=== PATIENT | male | born 1945 | race Caucasian/White ===

== ENCOUNTER 2017-01-25 21:12 | Emergency (ER) | payer OTHER, MEDICARE ==
[2017-01-25 21:25] VITALS: BP 141/77; BMI 34.8
[2017-01-25 22:21] LABS: APPEARANCE,URINE CLOUDY (CLEAR); BACTERIA,URINE 1+ /HPF (Negative); COLOR,URINE BLOODY (YELLOW); RBC,URINE TNTC /HPF (NEGATIVE); SQUAMOUS EPITHELIAL CELL,UR RARE /HPF (NEGATIVE)
[2017-01-25 22:49] LABS: BASOPHILS % (AUTO) 0.8 % (0.2-1.0); EOSINOPHILS # (AUTO) 0.2 x10^3/uL (0.0-0.2); EOSINOPHILS % (AUTO) 2.4 % (0.9-2.9); HEMATOCRIT 41.8 % (42.0-54.0); HEMOGLOBIN 14.3 g/dL (13.5-18.0); LYMPHOCYTES # (AUTO) 1.5 X10^3/uL (1.3-2.9); LYMPHOCYTES % (AUTO) 23.3 % (21.0-51.0); MEAN CORPUSCULAR HGB CONC 34.2 g/dL (33.0-35.0); MEAN CORPUSCULAR VOLUME 87.7 fL (80.0-100.0); MEAN PLATELET VOLUME 9.8 fL (7.4-11.0); MONOCYTES # (AUTO) 0.8 x10^3/uL (0.3-0.8); MONOCYTES % (AUTO) 12.2 % (0.0-13.0); NEUTROPHILS # (AUTO) 3.9 x10^3/uL (2.2-4.8); NEUTROPHILS % (AUTO) 61.3 % (42.0-75.0); PLATELET COUNT 147 X10^3/uL (150.0-450.0); RED BLOOD COUNT 4.76 X10^6/uL (4.7-6.0); RED CELL DISTRIBUTION WIDTH 13.7 % (11.6-16.5); WHITE BLOOD COUNT 6.4 X10^3/uL (3.6-10.0)
[2017-01-25 23:02] LABS: ALANINE AMINOTRANSFERASE 28 Units/L (12-78); ALBUMIN 3.3 g/dL (3.4-5.0); ALKALINE PHOSPHATASE 87 Units/L (46-116); ASPARTATE AMINO TRANSFERASE 20 Units/L (15-37); BLOOD UREA NITROGEN 14 mg/dL (7-18); CARBON DIOXIDE 28.7 mmol/L (21-32); CHLORIDE 108 mmol/L (98-107); COR CA(FOR HYPOALB) 8.6 mg/dL (8.5-10.1); COR NA(FOR HYPERGLY) 144 mmol/L (136-145); CREATININE 1.17 mg/dL (0.70-1.30); GLUCOSE 155 mg/dL (65-99); SODIUM 143 mmol/L (136-145); TOTAL PROTEIN 6.1 g/dL (6.4-8.2); eGFR BLACK RACES > 60 (>60); eGFR NON BLACK RACES > 60 (>60)
--- NOTE | 2017-01-26 00:41 | US ---
Ultrasound kidneys Indication: Hematuria. Blood collapse. Technique: Dynamic grayscale and Doppler imaging through the kidneys and bladder. Findings: The right kidney measures 11.4 cm in length the left kidney measures 11.0 cm in length. Th ere is no hydronephrosis or stone seen. The urinary bladder shows hypodense lesion at the base measu ring 3.4 x 2.7 x 2.8 cm. This is probably an enlarged prostate indenting the bladder base. Bladder m ass must be excluded, however. Impression: Mass at the bladder base, possibly enlarged prostate. Other urothelial neoplasm needs to be excluded. Followup with urology. Reported By:
--- NOTE | 2017-01-26 01:00 | DR.GENAD ---
HPI - PCP Primary Care Physician: MALIKA - HPI Comment HPI Comment: He started having casimiro hematuria earlier today which has persisted with at least three trips to the bathroom and seems to be worsening; no pain or discharge; he had partial turp years ago and sees Dr Grissom yearly with no recent problems. He takes coumadin but gets no routine inr, and he misses last month's routine doctor's visit. - Complaint/Symptoms Chief Complaint:: BLOOD IN URINE AND CLOTS - Source History Provided: Patient - Mode of Arrival Mode of Arrival: Ambulatory - Timing Onset of Chief Complaint: 01/25/17 PMH - PMH Past Medical History: Yes Past Medical History: Coronary Artery Disease, Diabetes, Hypertension Past Surgical History: Yes Surgical History: Angioplasty/Stents, Appendectomy, TURP - Family History History of Family Medical Conditions: Yes Family Medical History: Diabetes Mellitus, Hypertension - Social History Does patient currently use any type of tobacco product: No Have you used tobacco products in the last 12 months: No Type of Tobacco Use: None Does any household member use tobacco: No Alcohol Use: None Do you use any recreational Drugs:: No Lives With: Family Lives Where: Home - infectious screening In the last 2 months have you had wt loss of >10#?: NO Have you had fever, night sweats or hemotysis?: No Have you traveled outside the country in the last 6 months?: No Isolation: Standard ROS - Review of Systems Constitutional: No Symptoms Reported Respiratoy: No Symptoms Reported Cardiovascular: No Symptoms Reported Gastrointestinal/Abdominal: No Symptoms Reported Genitourinary: See HPI Neurological: No Symptoms Reported PE - Vital Signs Vitals: Temperature 98.3 F Pulse Rate 69 Respiratory Rate 18 Blood Pressure 141/77 O2 Sat by Pulse Oximetry 97 - General Limitations: No Limitations General Appearance: Alert, In No Apparent Distress - Head Head Exam: Normal Inspection, Atraumatic - Eyes Eye exam: Normal Appearance - Neck Neck Exam: Normal Inspection - Chest Chest Inspection: Normal Inspection - Respiratory Respiratory Exam: Bilateral Clear to Auscultation - Cardiovascular Cardiovascular Exam: Regular Rate - Abdominal Exam Abdominal Exam: Normal Inspection - Extremities Extremities Exam: Normal Inspection - Back Back Exam: Normal Inspection - Neurologic Neurological Exam: Alert, Oriented X3 ROR - Labs Reviewed Laboratory Results Reviewed?: Yes Result Diagrams: 01/25/17 22:40 01/25/17 22:40 Laboratory: WBC 6.4 X10^3/uL (3.6-10.0) 01/25/17 22:40 RBC 4.76 X10^6/uL (4.7-6.0) 01/25/17 22:40 Hgb 14.3 g/dL (13.5-18.0) 01/25/17 22:40 Hct 41.8 % (42.0-54.0) L 01/25/17 22:40 MCV 87.7 fL (80.0-100.0) 01/25/17 22:40 MCH 30.0 pg (27.0-34.0) 01/25/17 22:40 MCHC 34.2 g/dL (33.0-35.0) 01/25/17 22:40 RDW 13.7 % (11.6-16.5) 01/25/17 22:40 Plt Count 147 X10^3/uL (150.0-450.0) L 01/25/17 22:40 MPV 9.8 fL (7.4-11.0) 01/25/17 22:40 Neut % 61.3 % (42.0-75.0) 01/25/17 22:40 Lymph % 23.3 % (21.0-51.0) 01/25/17 22:40 [place] % 12.2 % (0.0-13.0) 01/25/17 22:40 Eos % 2.4 % (0.9-2.9) 01/25/17 22:40 Baso % 0.8 % (0.2-1.0) 01/25/17 22:40 Neut # 3.9 x10^3/uL (2.2-4.8) 01/25/17 22:40 Lymph # 1.5 X10^3/uL (1.3-2.9) 01/25/17 22:40 [place] # 0.8 x10^3/uL (0.3-0.8) 01/25/17 22:40 Eos # 0.2 x10^3/uL (0.0-0.2) 01/25/17 22:40 Baso # 0.0 X10^3/uL (0.0-0.1) 01/25/17 22:40 Absolute Nucleated RBC 0.0 /100WBC 01/25/17 22:40 INR Target Range - 01/25/17 22:40 INR 1.08 (0.8-1.3) 01/25/17 22:40 Sodium 143 mmol/L (136-145) 01/25/17 22:40 Corrected Sodium 144 mmol/L (136-145) 01/25/17 22:40 Potassium 3.9 mmol/L (3.5-5.1) 01/25/17 22:40 Chloride 108 mmol/L (98-107) H 01/25/17 22:40 Carbon Dioxide 28.7 mmol/L (21-32) 01/25/17 22:40 BUN 14 mg/dL (7-18) 01/25/17 22:40 Creatinine 1.17 mg/dL (0.70-1.30) 01/25/17 22:40 Est GFR (MDRD) Af Amer > 60 (>60) 01/25/17 22:40 Est GFR (MDRD) Non-Af > 60 (>60) 01/25/17 22:40 Glucose 155 mg/dL (65-99) H 01/25/17 22:40 Calcium 8.0 mg/dL (8.5-10.1) L 01/25/17 22:40 Corrected Calcium 8.6 mg/dL (8.5-10.1) 01/25/17 22:40 Total Bilirubin 0.30 mg/dL (0.2-1.0) 01/25/17 22:40 AST 20 Units/L (15-37) 01/25/17 22:40 ALT 28 Units/L (12-78) 01/25/17 22:40 Alkaline Phosphatase 87 Units/L (46-116) 01/25/17 22:40 Total Protein 6.1 g/dL (6.4-8.2) L 01/25/17 22:40 Albumin 3.3 g/dL (3.4-5.0) L 01/25/17 22:40 Globulin 2.8 g/dL (2.5-4.5) 01/25/17 22:40 Albumin/Globulin Ratio 1.2 Ratio (1.1-2.1) 01/25/17 22:40 Specimen Type Clean catch urine 01/25/17 21:45 Urine Color Bloody (YELLOW) 01/25/17 21:45 Urine Appearance Cloudy (CLEAR) 01/25/17 21:45 Urine RBC Tntc /HPF (NEGATIVE) 01/25/17 21:45 Urine WBC 3-5 /HPF (NEGATIVE) 01/25/17 21:45 Ur Squamous Epith Cells Rare /HPF (NEGATIVE) 01/25/17 21:45 Urine Bacteria 1+ /HPF (Negative) 01/25/17 21:45 Micro UA Comment Unable to perform (-) 01/25/17 21:45 - XRAY XRAY Interpreted by: Radiologist (mass at bladder base ? prostate) - Diagnosis Discharge Problem: Hematuria, Mass of urogenital structure - Discharge Plan Disposition: 01 HOME, SELF-CARE Condition: Stable - Follow ups/Referrals Follow ups/Referrals: YOLY GRISSOM [CONSULTING PHYSICIAN] - 3 days - Instructions Instructions: Hematuria, Adult
== END 2017-01-26 01:32 | disposition home or self-care (01) ==
LOC: ER 21:12
DX: R31.9 Hematuria, unspecified (principal); N50.89 Other specified disorders of the male genital organs
CPT/HCPCS: 36415; 76770; 80053; 81015; 85025; 85610; 87086; 99283

== ENCOUNTER 2017-03-31 12:02 | Emergency (ER) | payer OTHER, MEDICARE ==
[2017-03-31 12:06] VITALS: BP 144/69; BMI 34.8
--- NOTE | 2017-03-31 13:46 | DR.GENAD ---
HPI - PCP Primary Care Physician: Naseem - HPI Comment HPI Comment: PATIENT IS HAVING CHILL AND HIS SYMTOMS ARE GETTING WORSE. - Complaint/Symptoms Chief Complaint Doctors Comments: CHEST CONGESTION, COUGH CHILL, CHST PAIN TIMES FEW DAYS. Chief Complaint:: Pt states he is having some chest congestion x 2 days. C/o cough, chills - Nurses notes reviewed Nurses Notes Review: Yes - Source History Provided: Patient - Mode of Arrival Mode of Arrival: Ambulatory - Timing Onset of Chief Complaint: 03/29/17 Came on: Suddenly - Duration Duration: Constant Duration: Days - Severity Severity: Moderate PMH - PMH Past Medical History: Yes Past Medical History: Coronary Artery Disease, Diabetes, Dyslipidemia, Hypertension, [place] Past Surgical History: Yes Surgical History: Angioplasty/Stents, Appendectomy, TURP, Other Past Surgical History Comment: Vasectomy - Family History History of Family Medical Conditions: Yes Family Medical History: Diabetes Mellitus, Hypertension - Social History Does patient currently use any type of tobacco product: No Have you used tobacco products in the last 12 months: No Type of Tobacco Use: None Does any household member use tobacco: No Alcohol Use: None Do you use any recreational Drugs:: No Lives With: Spouse Lives Where: Home - infectious screening In the last 2 months have you had wt loss of >10#?: NO Have you had fever, night sweats or hemotysis?: No Have you traveled outside the country in the last 6 months?: No Isolation: Standard ROS - Review of Systems Constitutional: No Symptoms Reported, Chills, Weakness, Fatigue. negative: Fever Eyes: No Symptoms Reported. negative: Eye Pain, Discharge ENTM: Nose Congestion. negative: Ear Pain, Nose Discharge, Throat Pain Respiratoy: Productive Cough, Short of Breath, Wheezing Cardiovascular: Chest Pain Genitourinary: No Symptoms Reported Neurological: No Symptoms Reported Musculoskeletal: Muscle Pain Integumentary: No Symptoms Reported Hematologic/Lymphatic: No Symptoms Reported Endocrine: No Symptoms Reported All Other Systems: Reviewed and Negative PE - Vital Signs Vitals: Temperature 97.7 F Pulse Rate 69 Respiratory Rate 18 Blood Pressure 144/69 O2 Sat by Pulse Oximetry 97 - General Limitations: No Limitations General Appearance: Alert - Head Head Exam: Normal Inspection - Eyes Eye exam: Normal Appearance - ENT ENT Exam: Normal External Ear Exam External Ear Exam: Normal External Inspection TM/Canal Exam: Bilateral Normal Nose Exam: Normal Nose Exam Mouth Exam: Normal Inspection Throat Exam: Normal Inspection, Tonsillar Erythema - Neck Neck Exam: Trachea Midline. negative: Tenderness, Meningismus, Lymphadenopathy - Chest Chest Inspection: Symmetric Chest Wall Rise - Respiratory Respiratory Exam: Normal Lung Sounds Bilat Respiratory Exam: Bilateral Wheezing, Bilateral Rhonchi, Lower Wheezing, Lower Rhonchi - Cardiovascular Cardiovascular Exam: Regular Rate, Normal Rhythm, Normal Heart Sounds - Abdominal Exam Abdominal Exam: Normal Inspection, Normal Bowel Sounds - Extremities Extremities Exam: Normal Inspection - Back Back Exam: Normal Inspection - Neurologic Neurological Exam: Alert, Oriented X3 - Psychiatric Psychiatric Exam: Normal Affect, Normal Mood - Skin Skin Exam: Normal Color MDM - Differential Diagnosis Differential Diagnosis: PNEUMONIA, BRONCHITIS, COUGH, CHF Course - Treatment Treatment: SEE ORDERS - Education/Counseling Education/Counseling: Patient Educated On: Treatment, Diagnosis ROR - Labs Reviewed Laboratory Results Reviewed?: Yes Result Diagrams: 03/31/17 13:49 03/31/17 13:49 Laboratory: WBC 6.5 X10^3/uL (3.6-10.0) 03/31/17 13:49 RBC 5.08 X10^6/uL (4.7-6.0) 03/31/17 13:49 Hgb 15.4 g/dL (13.5-18.0) 03/31/17 13:49 Hct 44.9 % (42.0-54.0) 03/31/17 13:49 MCV 88.3 fL (80.0-100.0) 03/31/17 13:49 MCH 30.4 pg (27.0-34.0) 03/31/17 13:49 MCHC 34.4 g/dL (33.0-35.0) 03/31/17 13:49 RDW 13.5 % (11.6-16.5) 03/31/17 13:49 Plt Count 121 X10^3/uL (150.0-450.0) L 03/31/17 13:49 MPV 10.0 fL (7.4-11.0) 03/31/17 13:49 Neut % 76.9 % (42.0-75.0) H 03/31/17 13:49 Lymph % 6.4 % (21.0-51.0) L 03/31/17 13:49 [place] % 14.8 % (0.0-13.0) H 03/31/17 13:49 Eos % 1.1 % (0.9-2.9) 03/31/17 13:49 Baso % 0.8 % (0.2-1.0) 03/31/17 13:49 Neut # 5.0 x10^3/uL (2.2-4.8) H 03/31/17 13:49 Lymph # 0.4 X10^3/uL (1.3-2.9) L 03/31/17 13:49 [place] # 1.0 x10^3/uL (0.3-0.8) H 03/31/17 13:49 Eos # 0.1 x10^3/uL (0.0-0.2) 03/31/17 13:49 Baso # 0.1 X10^3/uL (0.0-0.1) 03/31/17 13:49 Absolute Nucleated RBC 0.0 /100WBC 03/31/17 13:49 Sodium 141 mmol/L (136-145) 03/31/17 13:49 Corrected Sodium TNP 03/31/17 13:49 Potassium 4.0 mmol/L (3.5-5.1) 03/31/17 13:49 Chloride 105 mmol/L (98-107) 03/31/17 13:49 Carbon Dioxide 30.4 mmol/L (21-32) 03/31/17 13:49 BUN 18 mg/dL (7-18) 03/31/17 13:49 Creatinine 1.20 mg/dL (0.70-1.30) 03/31/17 13:49 Est GFR (MDRD) Af Amer > 60 (>60) 03/31/17 13:49 Est GFR (MDRD) Non-Af > 60 (>60) 03/31/17 13:49 Glucose 91 mg/dL (65-99) 03/31/17 13:49 Calcium 8.7 mg/dL (8.5-10.1) 03/31/17 13:49 Corrected Calcium TNP 03/31/17 13:49 Total Bilirubin 0.50 mg/dL (0.2-1.0) 03/31/17 13:49 AST 16 Units/L (15-37) 03/31/17 13:49 ALT 28 Units/L (12-78) 03/31/17 13:49 Alkaline Phosphatase 75 Units/L (46-116) 03/31/17 13:49 Total Protein 7.0 g/dL (6.4-8.2) 03/31/17 13:49 Albumin 3.7 g/dL (3.4-5.0) 03/31/17 13:49 Globulin 3.3 g/dL (2.5-4.5) 03/31/17 13:49 Albumin/Globulin Ratio 1.1 Ratio (1.1-2.1) 03/31/17 13:49 Specimen Type Clean catch urine 03/31/17 13:51 Urine Color Yellow (YELLOW) 03/31/17 13:51 Urine Appearance Clear (CLEAR) 03/31/17 13:51 Urine pH 5.0 (5.0 - 8.0) 03/31/17 13:51 Ur Specific [place] 1.015 (1.000-1.030) 03/31/17 13:51 Urine Protein Negative (NEGATIVE) 03/31/17 13:51 Urine Glucose (UA) Negative (NEGATIVE) 03/31/17 13:51 Urine Ketones Negative (NEGATIVE) 03/31/17 13:51 Urine Occult Blood Negative (NEGATIVE) 03/31/17 13:51 Urine Nitrite Negative (NEGATIVE) 03/31/17 13:51 Urine Bilirubin Negative (NEGATIVE) 03/31/17 13:51 Urine Urobilinogen Normal (NORMAL) 03/31/17 13:51 Ur Leukocyte Esterase 1+ (NEGATIVE) 03/31/17 13:51 Urine RBC 1-3 /HPF (NEGATIVE) 03/31/17 13:51 Urine WBC 2-5 /HPF (NEGATIVE) 03/31/17 13:51 Ur Squamous Epith Cells Few /HPF (NEGATIVE) 03/31/17 13:51 Amorphous Sediment Trace /HPF (NEGATIVE) 03/31/17 13:51 Urine Bacteria Trace /HPF (NEGATIVE) 03/31/17 13:51 Urine Mucus Few /HPF (NEGATIVE) 03/31/17 13:51 Ur Culture Indicated? No/not indicated 03/31/17 13:51 - XRAY XRAY Interpreted by: Radiologist XRAY Findings: REPORT DISCUSS WITH PATIENT. - Diagnosis Discharge Problem: Cough - Discharge Plan Disposition: 01 HOME, SELF-CARE Condition: Stable - Follow ups/Referrals Follow ups/Referrals: Chandan Gusman [Primary Care Provider] - 3 days - Instructions Instructions: Cough, Adult, [id number] Additional Instructions: RETURN TO ED IF WORSE.
--- NOTE | 2017-03-31 13:52 | RAD ---
HISTORY: Chest pain. Study: Portable chest. Comparison: None available. Findings: The trachea is midline. The cardiac silhouette is unremarkable. The lungs are clear without focal infiltrate or effusion. The bony thorax is unremarkable. IMPRESSION: 1. No acute cardiopulmonary disease. Reported By:
[2017-03-31 13:59] LABS: BILIRUBIN,URINE NEGATIVE (NEGATIVE); BLOOD/HEMOGLOBIN,URINE NEGATIVE (NEGATIVE); GLUCOSE, URINE NEGATIVE (NEGATIVE); KETONES,URINE NEGATIVE (NEGATIVE); LEUKOCYTE ESTERASE ,URINE 1+ (NEGATIVE); NITRITES,URINE NEGATIVE (NEGATIVE); PROTEIN,URINE NEGATIVE (NEGATIVE); UROBILINOGEN,URINE NORMAL (NORMAL)
[2017-03-31 14:00] LABS: BASOPHILS # (AUTO) 0.1 X10^3/uL (0.0-0.1); BASOPHILS % (AUTO) 0.8 % (0.2-1.0); EOSINOPHILS # (AUTO) 0.1 x10^3/uL (0.0-0.2); EOSINOPHILS % (AUTO) 1.1 % (0.9-2.9); HEMATOCRIT 44.9 % (42.0-54.0); HEMOGLOBIN 15.4 g/dL (13.5-18.0); LYMPHOCYTES # (AUTO) 0.4 X10^3/uL (1.3-2.9); LYMPHOCYTES % (AUTO) 6.4 % (21.0-51.0); MEAN CORPUSCULAR HEMOGLOBIN 30.4 pg (27.0-34.0); MEAN CORPUSCULAR HGB CONC 34.4 g/dL (33.0-35.0); MEAN CORPUSCULAR VOLUME 88.3 fL (80.0-100.0); MONOCYTES % (AUTO) 14.8 % (0.0-13.0); NEUTROPHILS % (AUTO) 76.9 % (42.0-75.0); PLATELET COUNT 121 X10^3/uL (150.0-450.0); RED BLOOD COUNT 5.08 X10^6/uL (4.7-6.0); RED CELL DISTRIBUTION WIDTH 13.5 % (11.6-16.5); WHITE BLOOD COUNT 6.5 X10^3/uL (3.6-10.0)
[2017-03-31 14:06] LABS: APPEARANCE,URINE CLEAR (CLEAR); COLOR,URINE YELLOW (YELLOW)
[2017-03-31 14:07] LABS: AMORPHOUS SEDIMENT,UR TRACE /HPF (NEGATIVE); BACTERIA,URINE TRACE /HPF (NEGATIVE); MUCUS,URINE FEW /HPF (NEGATIVE); SQUAMOUS EPITHELIAL CELL,UR FEW /HPF (NEGATIVE)
[2017-03-31 14:20] LABS: ALANINE AMINOTRANSFERASE 28 Units/L (12-78); ALBUMIN 3.7 g/dL (3.4-5.0); ALKALINE PHOSPHATASE 75 Units/L (46-116); ASPARTATE AMINO TRANSFERASE 16 Units/L (15-37); BLOOD UREA NITROGEN 18 mg/dL (7-18); CALCIUM 8.7 mg/dL (8.5-10.1); CARBON DIOXIDE 30.4 mmol/L (21-32); CHLORIDE 105 mmol/L (98-107); GLUCOSE 91 mg/dL (65-99); SODIUM 141 mmol/L (136-145); eGFR BLACK RACES > 60 (>60); eGFR NON BLACK RACES > 60 (>60)
== END 2017-03-31 15:00 | disposition home or self-care (01) ==
LOC: ER 12:10
DX: R05 Cough (principal)
CPT/HCPCS: 36415; 71010; 80053; 81001; 85025; 99282

== ENCOUNTER → 2017-10-08 | Outpatient (CLI) | payer OTHER, MEDICARE ==
[2017-10-08 16:08] LABS: BASOPHILS # (AUTO) 0.1 X10^3/uL (0.0-0.1); BASOPHILS % (AUTO) 0.8 % (0.2-1.0); EOSINOPHILS # (AUTO) 0.2 x10^3/uL (0.0-0.2); EOSINOPHILS % (AUTO) 2.5 % (0.9-2.9); HEMATOCRIT 39.8 % (42.0-54.0); HEMOGLOBIN 13.7 g/dL (13.5-18.0); LYMPHOCYTES # (AUTO) 1.5 X10^3/uL (1.3-2.9); LYMPHOCYTES % (AUTO) 19.6 % (21.0-51.0); MEAN CORPUSCULAR HEMOGLOBIN 30.1 pg (27.0-34.0); MEAN CORPUSCULAR HGB CONC 34.4 g/dL (33.0-35.0); MEAN CORPUSCULAR VOLUME 87.6 fL (80.0-100.0); MEAN PLATELET VOLUME 10.4 fL (7.4-11.0); MONOCYTES # (AUTO) 0.6 x10^3/uL (0.3-0.8); MONOCYTES % (AUTO) 8.6 % (0.0-13.0); NEUTROPHILS # (AUTO) 5.1 x10^3/uL (2.2-4.8); NEUTROPHILS % (AUTO) 68.5 % (42.0-75.0); PLATELET COUNT 153 X10^3/uL (150.0-450.0); RED BLOOD COUNT 4.54 X10^6/uL (4.7-6.0); RED CELL DISTRIBUTION WIDTH 13.7 % (11.6-16.5); WHITE BLOOD COUNT 7.5 X10^3/uL (3.6-10.0)
== END ==
LOC: LAB 15:51
PROVIDERS: ATTEND Internal Medicine
DX: K62.5 Hemorrhage of anus and rectum (principal)
CPT/HCPCS: 36415; 85025

== ENCOUNTER 2019-02-22 16:25 | Observation (INO) ==
[2019-02-22] MEDS ORDERED: HumuLIN R SUBCUT PRN (16:35)
--- NOTE | 2019-02-22 16:42 | DR.H&P ---
H&P - History & Physical for Day of: H&P Date: 02/22/19 - Chief Complaint Chief Complaint: DIZZINESS, DIARRHEA SINCE THURSDAY, WEAKNESS BP RUNNING LOW - History of Present Illness History of Present Illness: 73 WM WITH CO DIZZINESS, LOW BP WITH DIARRHEA SINCE THURSDAY. PT DENIES VOMITING, CO CHILLS AND SWEATS. PT CO WAS SEEN IN ER ON 02/19 WITH WEAKNESS, CP AND DIZZINESS. PT HAD NORMAL CE AND EKG DONE. PT HAS HX CAD AND PENDING CATH NEXT WEEK, PREVIOUSLY SCHEDULED FOR TODAY AND CANCELED DUE TO ILLNESS. PT BP 100/50 IN OFFICE. PT ADMITTED FOR TREATMENT OF COLITIS AND DEHYDRATION. - Past Medical History Past Medical History: [place], Coronary Artery Disease, Hypertension, Dyslipidemia, Diabetes - Past Surgical History Surgical History: Angioplasty/Stents, Appendectomy, Other, TURP - Family History Family Medical History: Diabetes Mellitus, Hypertension - Social History Does patient currently use any type of tobacco product: No Have you used tobacco products in the last 12 months: No Type of Tobacco Use: None Does any household member use tobacco: No Alcohol Use: None Drug Use: None - Medications Home Medications: No Known Drug Allergies Allergy (Verified 02/19/19 15:32) - Review of Systems Constitutional: Chills, Weakness Eyes: No Symptoms Reported ENT: No Symptoms Reported Respiratory: SOB with Excertion Cardiovascular: Light Headedness Gastrointestinal: Nausea, Diarrhea Genitourinary: No Symptoms Reported Skin: No Symptoms Reported Neurological: Weakness, Other (DIZZINESS) - Physical Exam Vital Signs: Blood Pressure [Left Arm] 169/79 Blood Pressure 169/79 Oriented: Person Eyes: Normal Ear: Normal Nose: Normal Throat: Normal Respiratory: RLL Diminished, LLL Diminished Cardiovascular: Irregular Auscultation: Bowel Sounds: Increased Palpation: Normal Skin: Decreased Turgur Musculoskeletal: Normal Psychiatric: Anxiety Affect: Anxious Speech Pattern: Clear, Appropriate - Assessment/Plan (1) Colitis Status: Acute Plan: ADMIT, STOOL STUDIES. IV HYDRATION. ADMISSION LABS CBC CMP MAG. CE AND EKG ON ADMISSION. SSI, CLEAR LIQUID DIET, PROTONIX (2) Hypotension Status: Acute (3) Dehydration Status: Acute (4) Coronary artery disease Status: Acute (5) Dizziness Status: Acute - Allergies Allergies/Adverse Reactions: Allergies Allergy/AdvReac Type Severity Reaction Status Date / Time No Known Drug Allergies Allergy Verified 02/19/19 15:32
[2019-02-22] MEDS ORDERED: NS 1000 ML 1,000 ML ONE (16:45)
[2019-02-22 17:07] VITALS: BMI 32.1
[2019-02-22] MEDS: NS 1000 ML 1,000 ML IV SCH (17:13)
[2019-02-22 17:27] LABS: CKMB % 1.9 % (<4); CREATINE KINASE MB 1.4 ng/mL (0-4.0); MAGNESIUM 1.8 mg/dL (1.7-2.9); TROPONIN I 0.03 ng/mL (0-1.5)
[2019-02-22 18:55] LABS: BASOPHILS % (AUTO) 0.5 % (0.2-1.0); EOSINOPHILS # (AUTO) 0.1 x10^3/uL (0.0-0.2); EOSINOPHILS % (AUTO) 0.9 % (0.9-2.9); HEMATOCRIT 45.9 % (42.0-54.0); HEMOGLOBIN 15.6 g/dL (13.5-18.0); LYMPHOCYTES # (AUTO) 0.9 X10^3/uL (1.3-2.9); LYMPHOCYTES % (AUTO) 15.8 % (21.0-51.0); MEAN CORPUSCULAR HEMOGLOBIN 29.9 pg (27.0-34.0); MEAN CORPUSCULAR HGB CONC 33.9 g/dL (33.0-35.0); MEAN CORPUSCULAR VOLUME 88.2 fL (80.0-100.0); MEAN PLATELET VOLUME 10.3 fL (7.4-11.0); MONOCYTES % (AUTO) 18.9 % (0.0-13.0); NEUTROPHILS # (AUTO) 3.5 x10^3/uL (2.2-4.8); NEUTROPHILS % (AUTO) 63.9 % (42.0-75.0); PLATELET COUNT 137 X10^3/uL (150.0-450.0); RED BLOOD COUNT 5.21 X10^6/uL (4.7-6.0); RED CELL DISTRIBUTION WIDTH 13.8 % (11.6-16.5); WHITE BLOOD COUNT 5.5 X10^3/uL (3.6-10.0)
[2019-02-22 19:11] LABS: ALBUMIN 3.3 g/dL (3.4-5.0); CALCIUM 8.5 mg/dL (8.5-10.1); CARBON DIOXIDE 26.4 mmol/L (21-32); COR CA(FOR HYPOALB) 9.1 mg/dL (8.5-10.1); CREATININE 1.59 mg/dL (0.70-1.30); TOTAL PROTEIN 6.5 g/dL (6.4-8.2)
[2019-02-22] MEDS: PROTONIX INJ 40 MG VIAL IVP SCH (19:44)
[2019-02-22] MEDS: CIPRO IV 400 MG PREMIX* 400 MG/200 ML IV.SOLN. IV SCH (19:44)
[2019-02-22 20:00] LABS: BILIRUBIN,URINE NEGATIVE (NEGATIVE); BLOOD/HEMOGLOBIN,URINE NEGATIVE (NEGATIVE); GLUCOSE, URINE NEGATIVE (NEGATIVE); KETONES,URINE NEGATIVE (NEGATIVE); LEUKOCYTE ESTERASE ,URINE NEGATIVE (NEGATIVE); NITRITES,URINE NEGATIVE (NEGATIVE); PROTEIN,URINE 1+ (NEGATIVE); UROBILINOGEN,URINE NORMAL (NORMAL)
[2019-02-22] MEDS ORDERED: SNACK - Diabetic Appropriate PO SCH (20:00)
[2019-02-22 20:01] LABS: APPEARANCE,URINE CLEAR (CLEAR); COLOR,URINE YELLOW (YELLOW)
[2019-02-22 20:06] LABS: BACTERIA,URINE TRACE /HPF (NEGATIVE); RBC,URINE 0-2 /HPF (NONE SEEN); SQUAMOUS EPITHELIAL CELL,UR NEGATIVE /HPF (NEGATIVE)
[2019-02-22 20:07] LABS: HYALINE CASTS, URINE MODERATE /LPF (NEGATIVE); MUCUS,URINE FEW /HPF (NEGATIVE)
--- NOTE | 2019-02-22 22:23 | CT ---
History: Colitis and pain Exam: CT abdomen and pelvis without contrast Comparison: None Technique: Axial spiral images were obtained from lung bases through the pubic symphysis without contrast. Automated dose control was utilized. Findings: The lung bases are clear. The liver and spleen are normal size and density. The gallbladder, pancreas , and adrenals are normal. There is perirenal scarring around both kidneys with no hydronephrosis or renal stones. The ureters are normal caliber . The prostate gland is moderately enlarged . The bladder is unremarkable. No adenopathy or ascites is seen. The appendix is not well visualized with no pericecal inflammation . The mesentery is unremarkable . There is no adenopathy or ascites . 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 There are degenerative changes seen in the spine with no aggressive osseous lesion. IMPRESSION: No acute intra-abdominal abnormality seen. Moderate perirenal scarring around both kidneys with no hydronephrosis or urinary obstruction. Mild diverticulosis of the sigmoid colon with no pelvic masses or inflammation seen . 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 Moderate prostatic enlargement . Small hiatal hernia. Reported By:
[2019-02-23 05:21] LABS: BASOPHILS % (AUTO) 0.5 % (0.2-1.0); EOSINOPHILS # (AUTO) 0.1 x10^3/uL (0.0-0.2); EOSINOPHILS % (AUTO) 1.4 % (0.9-2.9); HEMATOCRIT 41.7 % (42.0-54.0); HEMOGLOBIN 14.1 g/dL (13.5-18.0); LYMPHOCYTES # (AUTO) 1.1 X10^3/uL (1.3-2.9); LYMPHOCYTES % (AUTO) 21.5 % (21.0-51.0); MEAN CORPUSCULAR HEMOGLOBIN 30.2 pg (27.0-34.0); MEAN CORPUSCULAR HGB CONC 33.8 g/dL (33.0-35.0); MEAN CORPUSCULAR VOLUME 89.4 fL (80.0-100.0); MEAN PLATELET VOLUME 10.5 fL (7.4-11.0); MONOCYTES # (AUTO) 0.9 x10^3/uL (0.3-0.8); MONOCYTES % (AUTO) 17.8 % (0.0-13.0); NEUTROPHILS # (AUTO) 3.1 x10^3/uL (2.2-4.8); NEUTROPHILS % (AUTO) 58.8 % (42.0-75.0); PLATELET COUNT 128 X10^3/uL (150.0-450.0); RED BLOOD COUNT 4.67 X10^6/uL (4.7-6.0); RED CELL DISTRIBUTION WIDTH 13.5 % (11.6-16.5); WHITE BLOOD COUNT 5.2 X10^3/uL (3.6-10.0)
[2019-02-23 05:37] LABS: ALANINE AMINOTRANSFERASE 29 Units/L (12-78); ALBUMIN 2.8 g/dL (3.4-5.0); ALKALINE PHOSPHATASE 70 Units/L (46-116); ASPARTATE AMINO TRANSFERASE 24 Units/L (15-37); BLOOD UREA NITROGEN 18 mg/dL (7-18); CALCIUM 8.1 mg/dL (8.5-10.1); CARBON DIOXIDE 30.5 mmol/L (21-32); CHLORIDE 103 mmol/L (98-107); COR CA(FOR HYPOALB) 9.1 mg/dL (8.5-10.1); CREATININE 1.35 mg/dL (0.70-1.30); SODIUM 141 mmol/L (136-145); TOTAL PROTEIN 5.6 g/dL (6.4-8.2); eGFR NON BLACK RACES 55 (>60)
[2019-02-23] MEDS ORDERED: K-DUR TAB 20 MEQ PO PRN (06:15)
[2019-02-23] MEDS ORDERED: POTASSIUM CHL 40 MEQ/NS 0.45% 500 ML IV PRN (06:15)
[2019-02-23] MEDS ORDERED: MAGNESIUM SULFATE 1 GRAM/100 mL PREMIX 1 GM/100 ML BAG IV PRN (06:15)
[2019-02-23] MEDS ORDERED: POTASSIUM CHL 60 MEQ/NS 0.45% 500 ML IV PRN (06:15)
[2019-02-23] MEDS ORDERED: K-RIDER 10 MEQ/NS 100 ML 10 MEQ/100 ML BAG IV PRN (06:15)
[2019-02-23] MEDS ORDERED: MICRO K EXTEN CAP 10 MEQ PO PRN (06:15)
[2019-02-23] MEDS ORDERED: KLOR-CON PO PRN (06:15)
[2019-02-23] MEDS ORDERED: POTASSIUM CHLORIDE LIQ 20 MEQ UDC PO PRN (06:15)
[2019-02-23] MEDS ORDERED: PHARMACY CONSULT - DOSE _____ XX SCH (08:00)
[2019-02-23] MEDS: CIPRO IV 400 MG PREMIX* 400 MG/200 ML IV.SOLN. IV SCH (08:09)
[2019-02-23] MEDS: PROTONIX INJ 40 MG VIAL IVP SCH (08:09)
[2019-02-23] MEDS: NS 1000 ML 1,000 ML IV SCH (08:26)
[2019-02-23 11:41] VITALS: BP 119/62
== END 2019-02-23 12:05 | disposition home or self-care (01) ==
LOC: ICU
PROVIDERS: ADMIT Internal Medicine; ATTEND Internal Medicine
DX: R06.02 Shortness of breath; R53.1 Weakness; I25.10 Atherosclerotic heart disease of native coronary artery without angina pectoris; R94.4 Abnormal results of kidney function studies; Z79.899 Other long term (current) drug therapy; I95.89 Other hypotension; E86.0 Dehydration; K44.9 Diaphragmatic hernia without obstruction or gangrene; R42 Dizziness and giddiness; K52.89 Other specified noninfective gastroenteritis and colitis
CPT/HCPCS: 36415; 74176; 80053; 81001; 82270; 82550; 82553; 83735; 84132; 84484; 85025; 87045; 87205; 87427; 87449; 87899; 93005; 96367; 96374; A4222; C9113; G0378; J0744; J7030

== ENCOUNTER 2019-06-26 15:15 | Inpatient (IN) ==
[2019-06-26 15:23] VITALS: BMI 34.2
--- NOTE | 2019-06-26 15:41 | DR.GENAD ---
HPI Time Seen Time Seen by Provider: 06/26/19 15:41 PCP Primary Care Physician: ROBERTO CARLOS YAO Complaint/Symptoms Chief Complaint Doctors Comments: 74 yo male who presents for generalized illness. He was advised to come to ED when he felt lightheaded. He has had cough for the past 4-5 days that has been worsening. He states that she has also had decreased appetite and fevers since. He is life long none smoker. He states that he feels horrible and has aches and pains.He denies SOB/CHEST pain/ dysuria/ change in bowel habits. Chief Complaint:: CCC FOR 5 DAYS, WENT TO [facility] AND GOT A SHOT OF ROCEPHIN AND WENT TO GET MEDS AT [facility] AND THINKS HE HAD A REACTION TO MEDS. FEVER OF 101.8 Source History Provided: Patient and Significant Other Mode of Arrival Mode of Arrival: Ambulatory Timing Onset of Chief Complaint: 06/21/19 PMH PMH Past Medical History: Yes Past Medical History: Arthritis and Hypertension Past Surgical History: Yes Surgical History: Ortho Surgery Past Surgical History Comment: VASCETOMY, STENTS Family History History of Family Medical Conditions: Yes Family Medical History: Diabetes Mellitus, [place], Coronary Artery Disease, Heart Failure and Hypertension Social History Does any household member use tobacco: No Alcohol Use: None Do you use any recreational Drugs:: No Lives With: Spouse Lives Where: Home infectious screening In the last 2 months have you had wt loss of >10#?: NO Have you had fever, night sweats or hemotysis?: No Have you traveled outside the country in the last 6 months?: No Isolation: Standard ROS Review of Systems Constitutional: Chills, Fever, Malaise and Fatigue Eyes: No Symptoms Reported ENTM: No Symptoms Reported Respiratoy: Productive Cough Cardiovascular: No Symptoms Reported Gastrointestinal/Abdominal: No Symptoms Reported Genitourinary: No Symptoms Reported Neurological: No Symptoms Reported Musculoskeletal: No Symptoms Reported Integumentary: No Symptoms Reported Hematologic/Lymphatic: No Symptoms Reported Endocrine: No Symptoms Reported All Other Systems: Reviewed and Negative PE Vital Signs Vitals: Temperature 98.2 F Pulse Rate [Left Brachial] 67 Pulse Rate 117 Respiratory Rate 20 Blood Pressure [Left Arm] 141/63 Blood Pressure 134/54 O2 Sat by Pulse Oximetry 95 General Limitations: No Limitations General Appearance: Alert and In Distress (acutely ill) Head Head Exam: Normal Inspection, Atraumatic and Normocephalic Eyes Eye exam: Normal Appearance and EOMI ENT ENT Exam: Normal Exam External Ear Exam: Normal External Inspection Nose Exam: Normal Nose Exam Chest Chest Inspection: Normal Inspection Respiratory Respiratory Exam: Bilateral: Wheezing and Bilateral: Rales (bases ) Cardiovascular Cardiovascular Exam: Tachycardia Abdominal Exam Abdominal Exam: Normal Inspection, Normal Bowel Sounds and Soft Extremities Extremities Exam: Normal Inspection and Full ROM Neurologic Neurological Exam: Alert, Oriented X3 and CN II-XII Intact Psychiatric Psychiatric Exam: Normal Affect and Normal Mood Skin Skin Exam: Other (warm to touch) MDM Additional Information Additional Information Obtained From: Old Records and Family Differential Diagnosis Differential Diagnosis: sepsis COURSE Reevaluation 1st: Unchanged (16:45) 2nd: Unchanged (17:30) 3rd: Unchanged (18:00) Consultation Called: 18:05 Call Returned: 18:05 Consultation Comments: Dr. Campos accepts admission Education/Counseling Education/Counseling: Patient, Family, Education and Counseling Educated On: Treatment, Diagnosis, Prognosis and Needs for Follow Up ROR Labs Reviewed Laboratory Results Reviewed?: Yes Result Diagrams: 06/26/19 16:04 06/26/19 16:04 Laboratory: WBC 7.6 X10^3/uL (3.6-10.0) 06/26/19 16:04 RBC 4.87 X10^6/uL (4.7-6.0) 06/26/19 16:04 Hgb 14.8 g/dL (13.5-18.0) 06/26/19 16:04 Hct 42.6 % (42.0-54.0) 06/26/19 16:04 MCV 87.5 fL (80.0-100.0) 06/26/19 16:04 MCH 30.4 pg (27.0-34.0) 06/26/19 16:04 MCHC 34.7 g/dL (33.0-35.0) 06/26/19 16:04 RDW 14.2 % (11.6-16.5) 06/26/19 16:04 Plt Count 109 X10^3/uL (150.0-450.0) L 06/26/19 16:04 MPV 9.2 fL (7.4-11.0) 06/26/19 16:04 Neut % (Auto) 86.4 % (42.0-75.0) H 06/26/19 16:04 Lymph % (Auto) 4.4 % (21.0-51.0) L 06/26/19 16:04 [place] % (Auto) 8.4 % (0.0-13.0) 06/26/19 16:04 Eos % (Auto) 0.4 % (0.9-2.9) L 06/26/19 16:04 Baso % (Auto) 0.4 % (0.2-1.0) 06/26/19 16:04 Neut # (Auto) 6.6 x10^3/uL (2.2-4.8) H 06/26/19 16:04 Lymph # (Auto) 0.3 X10^3/uL (1.3-2.9) L 06/26/19 16:04 [place] # (Auto) 0.6 x10^3/uL (0.3-0.8) 06/26/19 16:04 Eos # (Auto) 0.0 x10^3/uL (0.0-0.2) 06/26/19 16:04 Baso # (Auto) 0.0 X10^3/uL (0.0-0.1) 06/26/19 16:04 Absolute Nucleated RBC 0.1 /100WBC 06/26/19 16:04 PT 13.3 SECONDS (11.8-14.3) 06/26/19 16:04 INR Target Range - 06/26/19 16:04 INR 1.05 (0.8-1.3) 06/26/19 16:04 APTT 27.2 SECONDS (22.9-36.5) 06/26/19 16:04 PTT Comment - 06/26/19 16:04 Sodium 137 mmol/L (136-145) 06/26/19 16:04 Corrected Sodium 139 mmol/L (136-145) 06/26/19 16:04 Potassium 3.6 mmol/L (3.5-5.1) 06/26/19 16:04 Chloride 100 mmol/L (98-107) 06/26/19 16:04 Carbon Dioxide 28.7 mmol/L (21-32) 06/26/19 16:04 BUN 18 mg/dL (7-18) 06/26/19 16:04 Creatinine 1.32 mg/dL (0.70-1.30) H 06/26/19 16:04 Est GFR (MDRD) Af Amer > 60 (>60) 06/26/19 16:04 Est GFR (MDRD) Non-Af 56 (>60) L 06/26/19 16:04 Glucose 177 mg/dL (65-99) H 06/26/19 16:04 POC Glucose (mg/dL) 143 mg/dL (65-99) H 06/26/19 15:30 Lactic Acid 1.6 mmol/L (0.4-2.0) 06/26/19 16:04 Calcium 8.6 mg/dL (8.5-10.1) 06/26/19 16:04 Corrected Calcium 9.2 mg/dL (8.5-10.1) 06/26/19 16:04 Phosphorus 3.6 mg/dL (2.6-4.7) 06/26/19 16:04 Magnesium 1.3 mg/dL (1.7-2.9) L 06/26/19 16:04 Total Bilirubin 0.60 mg/dL (0.2-1.0) 06/26/19 16:04 AST 22 Units/L (15-37) 06/26/19 16:04 ALT 23 Units/L (12-78) 06/26/19 16:04 Alkaline Phosphatase 81 Units/L (46-116) 06/26/19 16:04 Creatine Kinase 140 Units/L (39-308) 06/26/19 16:04 CK-MB (CK-2) 1.5 ng/mL (0-4.0) 06/26/19 16:04 CK/CKMB % Calc 1.1 % (<4) 06/26/19 16:04 Troponin I < 0.02 ng/mL (0-1.5) 06/26/19 16:04 Total Protein 6.3 g/dL (6.4-8.2) L 06/26/19 16:04 Albumin 3.2 g/dL (3.4-5.0) L 06/26/19 16:04 Globulin 3.1 g/dL (2.5-4.5) 06/26/19 16:04 Albumin/Globulin Ratio 1.0 Ratio (1.1-2.1) L 06/26/19 16:04 Specimen Type Clean catch urine 06/26/19 16:10 Urine Color Yellow (YELLOW) 06/26/19 16:10 Urine Appearance Clear (CLEAR) 06/26/19 16:10 Urine pH 5.0 (5.0 - 8.0) 06/26/19 16:10 Ur Specific [place] 1.025 (1.000-1.030) 06/26/19 16:10 Urine Protein 1+ (NEGATIVE) 06/26/19 16:10 Urine Glucose (UA) Negative (NEGATIVE) 06/26/19 16:10 Urine Ketones 1+ (NEGATIVE) 06/26/19 16:10 Urine Occult Blood Negative (NEGATIVE) 06/26/19 16:10 Urine Nitrite Negative (NEGATIVE) 06/26/19 16:10 Urine Bilirubin Negative (NEGATIVE) 06/26/19 16:10 Urine Urobilinogen Normal (NORMAL) 06/26/19 16:10 Ur Leukocyte Esterase Negative (NEGATIVE) 06/26/19 16:10 Urine RBC None seen /HPF (0-3) 06/26/19 16:10 Urine WBC 0-2 /HPF (0-5) 06/26/19 16:10 Ur Squamous Epith Cells Few /HPF (NEGATIVE) 06/26/19 16:10 Urine Bacteria Negative /HPF (NEGATIVE) 06/26/19 16:10 Urine Mucus Few /HPF (NEGATIVE) 06/26/19 16:10 Ur Culture Indicated? No/not indicated 06/26/19 16:10 Other Results Comments: Service Date: 06/26/19 Service Time: 1720 HISTORY: Fever, altered mental status Study: CT brain without contrast Comparison: 10/19/2018 Technique: Multiple axial images of the brain were obtained from the skull base to the vertex without administration of IV contrast. Automated exposure control (AEC) was utilized to adjust the MA and/or kV according to patient size. Findings: There is no acute intracranial hemorrhage. 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 No mass or mass effect. No abnormal extra-axial fluid collection. The ventricles are normal in size, shape and position. Basilar cisterns patent. Good matter -white matter interface is distinct. There is mucoperiosteal thickening noted in the anterior and middle ethmoid air cells, with aerosolized secretions. Mucoperiosteal thickening noted in both maxillary sinuses. There is no acute osseous abnormality. IMPRESSION: 1. Findings consistent with acute sinusitis involving the ethmoid air cells as discussed above. Mucoperiosteal thickening also noted within the maxillary sinuses. 2. Chronic appearing white matter changes are noted as described above. . Reported By: Service Date: 06/26/19 Service Time: 1547 HISTORY: Altered mental status Study: AP chest. Comparison: 02/19/2019 Findings: Mild prominence of the interstitium noted in the lung bases. This appears similar previous examination. No focal airspace opacities are noted. There are no pleural effusions. The beau and cardiomediastinal silhouette appear normal. IMPRESSION: 1. Mild interstitial prominence of the lung bases appears similar to previous examination and may be secondary to chronic interstitial changes, chronic interstitial lung disease. Clinical correlation is required.. Reported By: Opioid Opioid Risk Tool Total: 0 Total Score Risk Category: Low Risk Copyright: Gerry MCNAMARA predicting aberrant behaviors Diagnosis Discharge Problem: Sepsis Narrative Support Text: Admitted to Dr. Campos for further workup
[2019-06-26] MEDS ORDERED: ZOSYN VIAL 4.5 GRAMS 4.5 G in NS 100 ML IV + SPIKE MINIBAG* 100 ML IV SCH (16:00)
[2019-06-26] MEDS ORDERED: PHARMACY CONSULT - VANCOMYCIN XX SCH (16:00)
[2019-06-26] MEDS ORDERED: DUONEB 0.5 MG/3 MG NEB ONE (16:13)
[2019-06-26 16:16] LABS: BASOPHILS % (AUTO) 0.4 % (0.2-1.0); EOSINOPHILS % (AUTO) 0.4 % (0.9-2.9); HEMATOCRIT 42.6 % (42.0-54.0); HEMOGLOBIN 14.8 g/dL (13.5-18.0); LYMPHOCYTES # (AUTO) 0.3 X10^3/uL (1.3-2.9); LYMPHOCYTES % (AUTO) 4.4 % (21.0-51.0); MEAN CORPUSCULAR HEMOGLOBIN 30.4 pg (27.0-34.0); MEAN CORPUSCULAR HGB CONC 34.7 g/dL (33.0-35.0); MEAN CORPUSCULAR VOLUME 87.5 fL (80.0-100.0); MEAN PLATELET VOLUME 9.2 fL (7.4-11.0); MONOCYTES # (AUTO) 0.6 x10^3/uL (0.3-0.8); MONOCYTES % (AUTO) 8.4 % (0.0-13.0); NEUTROPHILS # (AUTO) 6.6 x10^3/uL (2.2-4.8); NEUTROPHILS % (AUTO) 86.4 % (42.0-75.0); PLATELET COUNT 109 X10^3/uL (150.0-450.0); RED BLOOD COUNT 4.87 X10^6/uL (4.7-6.0); RED CELL DISTRIBUTION WIDTH 14.2 % (11.6-16.5); WHITE BLOOD COUNT 7.6 X10^3/uL (3.6-10.0)
[2019-06-26] MEDS ORDERED: ZOSYN VIAL 3.375 GRAMS IV ONE (16:23)
[2019-06-26] MEDS ORDERED: NS 100 ML IV + SPIKE MINIBAG* 100 ML IV ONE (16:23)
[2019-06-26] MEDS ORDERED: DUONEB 0.5 MG/3 MG ONE (16:25)
[2019-06-26 16:33] LABS: BLOOD UREA NITROGEN 18 mg/dL (7-18); CALCIUM 8.6 mg/dL (8.5-10.1); CARBON DIOXIDE 28.7 mmol/L (21-32); CHLORIDE 100 mmol/L (98-107); COR NA(FOR HYPERGLY) 139 mmol/L (136-145); CREATININE 1.32 mg/dL (0.70-1.30); SODIUM 137 mmol/L (136-145); TROPONIN I < 0.02 ng/mL (0-1.5); eGFR NON BLACK RACES 56 (>60)
[2019-06-26 16:37] LABS: ALANINE AMINOTRANSFERASE 23 Units/L (12-78); ALBUMIN 3.2 g/dL (3.4-5.0); ALKALINE PHOSPHATASE 81 Units/L (46-116); ASPARTATE AMINO TRANSFERASE 22 Units/L (15-37); CKMB % 1.1 % (<4); COR CA(FOR HYPOALB) 9.2 mg/dL (8.5-10.1); CREATINE KINASE 140 Units/L (39-308); CREATINE KINASE MB 1.5 ng/mL (0-4.0); MAGNESIUM 1.3 mg/dL (1.7-2.9); PHOSPHORUS 3.6 mg/dL (2.6-4.7); TOTAL PROTEIN 6.3 g/dL (6.4-8.2)
[2019-06-26] MEDS: NS 1000 ML 1,000 ML IV SCH (16:37)
[2019-06-26 16:46] LABS: LACTIC ACID 1.6 mmol/L (0.4-2.0)
[2019-06-26 17:00] LABS: BILIRUBIN,URINE NEGATIVE (NEGATIVE); BLOOD/HEMOGLOBIN,URINE NEGATIVE (NEGATIVE); GLUCOSE, URINE NEGATIVE (NEGATIVE); KETONES,URINE 1+ (NEGATIVE); LEUKOCYTE ESTERASE ,URINE NEGATIVE (NEGATIVE); NITRITES,URINE NEGATIVE (NEGATIVE); PROTEIN,URINE 1+ (NEGATIVE); UROBILINOGEN,URINE NORMAL (NORMAL)
[2019-06-26] MEDS ORDERED: TYLENOL 325 MG TAB PO PRN (17:06)
[2019-06-26 17:09] LABS: APPEARANCE,URINE CLEAR (CLEAR); BACTERIA,URINE NEGATIVE /HPF (NEGATIVE); COLOR,URINE YELLOW (YELLOW); MUCUS,URINE FEW /HPF (NEGATIVE); RBC,URINE NONE SEEN /HPF (0-3); SQUAMOUS EPITHELIAL CELL,UR FEW /HPF (NEGATIVE)
[2019-06-26] MEDS: ZOSYN VIAL 3.375 GRAMS 3.375 G in NS 100 ML IV + SPIKE MINIBAG* 100 ML IV SCH ×2 (18:00→21:12)
--- NOTE | 2019-06-26 18:00 | CT ---
HISTORY: Fever, altered mental status Study: CT brain without contrast Comparison: 10/19/2018 Technique: Multiple axial images of the brain were obtained from the skull base to the vertex without administration of IV contrast. Automated exposure control (AEC) was utilized to adjust the MA and/or kV according to patient size. Findings: There is no acute intracranial hemorrhage. 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 No mass or mass effect. No abnormal extra-axial fluid collection. The ventricles are normal in size, shape and position. Basilar cisterns patent. Good matter -white matter interface is distinct. There is mucoperiosteal thickening noted in the anterior and middle ethmoid air cells, with aerosolized secretions. Mucoperiosteal thickening noted in both maxillary sinuses. There is no acute osseous abnormality. IMPRESSION: 1. Findings consistent with acute sinusitis involving the ethmoid air cells as discussed above. Mucoperiosteal thickening also noted within the maxillary sinuses. 2. Chronic appearing white matter changes are noted as described above. . Reported By:
--- NOTE | 2019-06-26 18:35 | RAD ---
HISTORY: Altered mental status Study: AP chest. Comparison: 02/19/2019 Findings: Mild prominence of the interstitium noted in the lung bases. This appears similar previous examination. No focal airspace opacities are noted. There are no pleural effusions. The beau and cardiomediastinal silhouette appear normal. IMPRESSION: 1. Mild interstitial prominence of the lung bases appears similar to previous examination and may be secondary to chronic interstitial changes, chronic interstitial lung disease. Clinical correlation is required.. Reported By:
[2019-06-26] MEDS ORDERED: NS 250 ML IV 250 ML IV ONE (20:46)
[2019-06-26] MEDS ORDERED: VANCOMYCIN HCL ONE ×2 (20:46)
[2019-06-26] MEDS ORDERED: VANCOMYCIN HCL 500 MG, VANCOMYCIN HCL 1 G in NS 250 ML IV 250 ML IV SCH (21:00)
[2019-06-27] MEDS: NS 1000 ML 1,000 ML IV SCH ×2 (02:12→16:10)
[2019-06-27] MEDS: ZOSYN VIAL 3.375 GRAMS 3.375 G in NS 100 ML IV + SPIKE MINIBAG* 100 ML IV SCH ×3 (05:46→21:43)
[2019-06-27 06:50] LABS: BASOPHILS % (AUTO) 0.3 % (0.2-1.0); EOSINOPHILS % (AUTO) 0.3 % (0.9-2.9); HEMATOCRIT 40.5 % (42.0-54.0); LYMPHOCYTES # (AUTO) 1.1 X10^3/uL (1.3-2.9); LYMPHOCYTES % (AUTO) 12.2 % (21.0-51.0); MEAN CORPUSCULAR HEMOGLOBIN 30.3 pg (27.0-34.0); MEAN CORPUSCULAR HGB CONC 34.5 g/dL (33.0-35.0); MEAN CORPUSCULAR VOLUME 87.9 fL (80.0-100.0); MEAN PLATELET VOLUME 9.8 fL (7.4-11.0); MONOCYTES % (AUTO) 11.5 % (0.0-13.0); NEUTROPHILS # (AUTO) 6.6 x10^3/uL (2.2-4.8); NEUTROPHILS % (AUTO) 75.7 % (42.0-75.0); PLATELET COUNT 124 X10^3/uL (150.0-450.0); RED BLOOD COUNT 4.61 X10^6/uL (4.7-6.0); WHITE BLOOD COUNT 8.7 X10^3/uL (3.6-10.0)
[2019-06-27 07:03] LABS: ALANINE AMINOTRANSFERASE 22 Units/L (12-78); ALBUMIN 2.7 g/dL (3.4-5.0); ALKALINE PHOSPHATASE 69 Units/L (46-116); ASPARTATE AMINO TRANSFERASE 23 Units/L (15-37); BLOOD UREA NITROGEN 16 mg/dL (7-18); CALCIUM 7.8 mg/dL (8.5-10.1); CARBON DIOXIDE 30.2 mmol/L (21-32); CHLORIDE 102 mmol/L (98-107); COR CA(FOR HYPOALB) 8.8 mg/dL (8.5-10.1); COR NA(FOR HYPERGLY) 139 mmol/L (136-145); CREATININE 1.32 mg/dL (0.70-1.30); SODIUM 139 mmol/L (136-145); TOTAL PROTEIN 5.8 g/dL (6.4-8.2); eGFR NON BLACK RACES 56 (>60)
[2019-06-27] MEDS ORDERED: KLOR-CON PO PRN (07:19)
[2019-06-27] MEDS ORDERED: POTASSIUM CHL 60 MEQ/NS 0.45% 500 ML IV PRN (07:19)
[2019-06-27] MEDS ORDERED: POTASSIUM CHL 40 MEQ/NS 0.45% 500 ML IV PRN (07:19)
[2019-06-27] MEDS ORDERED: K-DUR TAB 20 MEQ PO PRN (07:19)
[2019-06-27] MEDS ORDERED: K-RIDER 10 MEQ/NS 100 ML 10 MEQ/100 ML BAG IV PRN (07:19)
[2019-06-27] MEDS ORDERED: MICRO K EXTEN CAP 10 MEQ PO PRN (07:19)
[2019-06-27] MEDS ORDERED: POTASSIUM CHLORIDE LIQ 20 MEQ UDC PO PRN (07:19)
[2019-06-27] MEDS: MAGNESIUM SULFATE 1 GRAM/100 mL PREMIX 1 GM/100 ML BAG IV PRN ×4 (08:16→19:07)
[2019-06-27] MEDS ORDERED: VANCOMYCIN HCL 1 G in D5W 250 ML IV 250 ML IV SCH (09:00)
[2019-06-27] MEDS ORDERED: LEVAQUIN PREMIX IV 500 MG 500 MG/100 ML BAG IV NR (09:28)
[2019-06-27] MEDS ORDERED: PHARMACY CONSULT - DOSE _____ XX SCH (12:00)
[2019-06-27] MEDS: ROBITUSSIN DM PO SCH ×4 (12:03→21:43)
[2019-06-27] MEDS: AMARYL TAB 4 MG PO SCH ×2 (12:03→21:42)
[2019-06-27] MEDS: LIPITOR TAB 40 MG PO SCH (12:03)
[2019-06-27] MEDS: LOPRESSOR TAB 25 MG PO SCH ×2 (12:03→21:42)
[2019-06-27] MEDS: PriLOSEC PO SCH (12:03)
[2019-06-27] MEDS: HYZAAR 50/12.5 MG PO SCH (12:04)
[2019-06-27] MEDS: LOVENOX INJ 40 MG SYR SC SCH (13:17)
[2019-06-27] MEDS: PULMICORT NEB TX 0.5 MG NEB SCH ×2 (13:30→21:12)
--- NOTE | 2019-06-27 17:49 | DR.H&P ---
H&P - History & Physical for Day of: H&P Date: 06/26/19 - Chief Complaint Chief Complaint: fever, ccc x 5days, flu like illness - History of Present Illness History of Present Illness: PT IS 74 WM ER ADMISSION AFTER PRESENTING WITH CO FEVER WITH CCC X5 DAYS. PT STATES HE RECENTLY RETURNED FROM VACATION. PT STATES HE WENT TO [facility] [employer] [facility] AND HAD SEVERE CHILLS AND FELT WEAK ~15MINS AFTER LEAVING [facility]. PT HAD TEMP 102 ON ARRIVAL TO ER. PT HAS PMH OF CAD, HTN, OA, DM. PT ADMITTED FOR EVALUATION AND TREATMENT OF ACUTE ILLNESS. - Past Medical History Past Medical History: Hypertension, Arthritis - Past Surgical History Surgical History: Ortho Surgery - Family History Family Medical History: Diabetes Mellitus, [place], Coronary Artery Disease, Heart Failure, Hypertension - Social History Does patient currently use any type of tobacco product: No Type of Tobacco Use: None Does any household member use tobacco: No Alcohol Use: None Drug Use: None - Medications Home Medications: No Known Drug Allergies Allergy (Verified 02/19/19 15:32) CONTINUE taking the following medications apple cider vinegar 500 mg PO DAILY 06/26/19 [History] cinnamon bark [Cinnamon] 1,000 mg PO DAILY 06/26/19 [History] coenzyme Q10 [Ultra CoQ10] 100 mg PO DAILY 06/26/19 [History] metoprolol tartrate 25 mg PO BID 06/26/19 [History] omeprazole magnesium [Prilosec OTC] 20 mg PO DAILY 06/26/19 [History] turmeric root extract 500 mg PO DAILY 06/26/19 [History] - Review of Systems Constitutional: Fever, Chills, Weakness Eyes: No Symptoms Reported ENT: No Symptoms Reported Respiratory: Cough, Shortness of Breath, Sputum, Wheezing Cardiovascular: No Symptoms Reported, Light Headedness. denies: Edema Gastrointestinal: Nausea Musculoskeletal: No Symptoms Reported Skin: No Symptoms Reported Neurological: No Symptoms Reported - Physical Exam Vital Signs: Temperature 98.3 F Pulse Rate [Left Brachial] 61 Pulse Rate 117 Respiratory Rate 20 Blood Pressure [Left Arm] 127/77 Blood Pressure 134/54 O2 Sat by Pulse Oximetry 97 Oriented: Normal Ear: Normal Nose: Normal Throat: Normal Respiratory: Rhonchi Throughout, Wheezes Throughout, RLL Diminished, LLL Diminished Cardiovascular: Normal : Normal Auscultation: Bowel Sounds: Normal Palpation: Normal Tenderness: Normal Skin: Normal Musculoskeletal: Normal Psychiatric: Normal Speech Pattern: Clear, Appropriate - Assessment/Plan (1) Acute bronchitis Status: Acute Plan: ADMIT, IV ATBX THERAPY. RESP CONSULT, FEVER CONTROL. GENTLE IV HYDRATION, BC COLLECTED ON ADMISSION. PRN SUPPLEMENTAL O2, UA AND LACTIC ACID ON ADMISSION (2) Fever Status: Acute (3) Flu-like symptoms Status: Acute (4) Coronary artery disease Status: Acute (5) Essential hypertension Status: Acute - Allergies Allergies/Adverse Reactions: Allergies Allergy/AdvReac Type Severity Reaction Status Date / Time No Known Drug Allergies Allergy Verified 02/19/19 15:32
--- NOTE | 2019-06-27 17:53 | PCM.PROG ---
Progress Note - Progress Note for Day of Date of Exam: 06/27/19 - Subjective Subjective: 74 WM ER ADMISSION LAST PM WITH FEVER AND FLU LIKE ILLNESS. PT WAS STARTED ON ZOSYN AND VANCOMYCIN IN ER. PT LACTIC ACID AND WBC NORMAL THIS AM. D/C VANCOMYCIN, CONTINUED ZOSYN AND ADDED LEVAQUIN. PT HAD DIFFUSE WHEEZES AND CENTRAL RHONCHI. FLU SWAB ORDERED. WILL CONTINUE RESP THERAPY, GENTLE IV HYDRATION. REPEAT AM CXR. - Past Medical Family Social History Past Med/Fam/Surg Hx: No changes since H&P Allergies: Allergies No Known Drug Allergies Allergy (Verified 02/19/19 15:32) - Review of Systems ROS: No change since H&P - Vital Signs and I&O's Vital Signs: Temperature 98.3 F Pulse Rate [Left Brachial] 61 Pulse Rate 117 Respiratory Rate 20 Blood Pressure [Left Arm] 127/77 Blood Pressure 134/54 O2 Sat by Pulse Oximetry 97 Intake and Output: Intake & Output 06/25/19 06/26/19 06/27/19 06/28/19 11:59 11:59 11:59 11:59 Intake Total 750 / 750 1200 / 1200 Balance 750 / 750 1200 / 1200 - Physical Exam Oriented: Normal Ear: Normal Nose: Normal Throat: Normal Respiratory: Wheezes, Rhonchi Cardiovascular: Normal : Normal Auscultation: Bowel Sounds: Normal Tenderness: Normal Skin: Normal Musculoskeletal: Normal Psychiatric: Normal Speech Pattern: Clear, Appropriate - Laboratory and Diagnostics Result Diagrams: 06/27/19 05:30 06/27/19 05:30 Labs: Laboratory WBC 8.7 X10^3/uL (3.6-10.0) 06/27/19 05:30 RBC 4.61 X10^6/uL (4.7-6.0) L 06/27/19 05:30 Hgb 14.0 g/dL (13.5-18.0) 06/27/19 05:30 Hct 40.5 % (42.0-54.0) L 06/27/19 05:30 MCV 87.9 fL (80.0-100.0) 06/27/19 05:30 MCH 30.3 pg (27.0-34.0) 06/27/19 05:30 MCHC 34.5 g/dL (33.0-35.0) 06/27/19 05:30 RDW 14.0 % (11.6-16.5) 06/27/19 05:30 Plt Count 124 X10^3/uL (150.0-450.0) L 06/27/19 05:30 MPV 9.8 fL (7.4-11.0) 06/27/19 05:30 Neut % (Auto) 75.7 % (42.0-75.0) H 06/27/19 05:30 Lymph % (Auto) 12.2 % (21.0-51.0) L 06/27/19 05:30 [place] % (Auto) 11.5 % (0.0-13.0) 06/27/19 05:30 Eos % (Auto) 0.3 % (0.9-2.9) L 06/27/19 05:30 Baso % (Auto) 0.3 % (0.2-1.0) 06/27/19 05:30 Neut # (Auto) 6.6 x10^3/uL (2.2-4.8) H 06/27/19 05:30 Lymph # (Auto) 1.1 X10^3/uL (1.3-2.9) L 06/27/19 05:30 [place] # (Auto) 1.0 x10^3/uL (0.3-0.8) H 06/27/19 05:30 Eos # (Auto) 0.0 x10^3/uL (0.0-0.2) 06/27/19 05:30 Baso # (Auto) 0.0 X10^3/uL (0.0-0.1) 06/27/19 05:30 Absolute Nucleated RBC 0.0 /100WBC 06/27/19 05:30 PT 13.3 SECONDS (11.8-14.3) 06/26/19 16:04 INR Target Range - 06/26/19 16:04 INR 1.05 (0.8-1.3) 06/26/19 16:04 APTT 27.2 SECONDS (22.9-36.5) 06/26/19 16:04 PTT Comment - 06/26/19 16:04 Sodium 139 mmol/L (136-145) 06/27/19 05:30 Corrected Sodium 139 mmol/L (136-145) 06/27/19 05:30 Potassium 3.6 mmol/L (3.5-5.1) 06/27/19 05:30 Chloride 102 mmol/L (98-107) 06/27/19 05:30 Carbon Dioxide 30.2 mmol/L (21-32) 06/27/19 05:30 BUN 16 mg/dL (7-18) 06/27/19 05:30 Creatinine 1.32 mg/dL (0.70-1.30) H 06/27/19 05:30 Est GFR (MDRD) Af Amer > 60 (>60) 06/27/19 05:30 Est GFR (MDRD) Non-Af 56 (>60) L 06/27/19 05:30 Glucose 116 mg/dL (65-99) H 06/27/19 05:30 POC Glucose (mg/dL) 141 mg/dL (65-99) H 06/27/19 16:25 Lactic Acid 1.6 mmol/L (0.4-2.0) 06/26/19 16:04 Calcium 7.8 mg/dL (8.5-10.1) L 06/27/19 05:30 Corrected Calcium 8.8 mg/dL (8.5-10.1) 06/27/19 05:30 Phosphorus 3.6 mg/dL (2.6-4.7) 06/26/19 16:04 Magnesium 1.3 mg/dL (1.7-2.9) L 06/26/19 16:04 Total Bilirubin 0.70 mg/dL (0.2-1.0) 06/27/19 05:30 AST 23 Units/L (15-37) 06/27/19 05:30 ALT 22 Units/L (12-78) 06/27/19 05:30 Alkaline Phosphatase 69 Units/L (46-116) 06/27/19 05:30 Creatine Kinase 140 Units/L (39-308) 06/26/19 16:04 CK-MB (CK-2) 1.5 ng/mL (0-4.0) 06/26/19 16:04 CK/CKMB % Calc 1.1 % (<4) 06/26/19 16:04 Troponin I < 0.02 ng/mL (0-1.5) 06/26/19 16:04 Total Protein 5.8 g/dL (6.4-8.2) L 06/27/19 05:30 Albumin 2.7 g/dL (3.4-5.0) L 06/27/19 05:30 Globulin 3.1 g/dL (2.5-4.5) 06/27/19 05:30 Albumin/Globulin Ratio 0.9 Ratio (1.1-2.1) L 06/27/19 05:30 Specimen Type Clean catch urine 06/26/19 16:10 Urine Color Yellow (YELLOW) 06/26/19 16:10 Urine Appearance Clear (CLEAR) 06/26/19 16:10 Urine pH 5.0 (5.0 - 8.0) 06/26/19 16:10 Ur Specific [place] 1.025 (1.000-1.030) 06/26/19 16:10 Urine Protein 1+ (NEGATIVE) 06/26/19 16:10 Urine Glucose (UA) Negative (NEGATIVE) 06/26/19 16:10 Urine Ketones 1+ (NEGATIVE) 06/26/19 16:10 Urine Occult Blood Negative (NEGATIVE) 06/26/19 16:10 Urine Nitrite Negative (NEGATIVE) 06/26/19 16:10 Urine Bilirubin Negative (NEGATIVE) 06/26/19 16:10 Urine Urobilinogen Normal (NORMAL) 06/26/19 16:10 Ur Leukocyte Esterase Negative (NEGATIVE) 06/26/19 16:10 Urine RBC None seen /HPF (0-3) 06/26/19 16:10 Urine WBC 0-2 /HPF (0-5) 06/26/19 16:10 Ur Squamous Epith Cells Few /HPF (NEGATIVE) 06/26/19 16:10 Urine Bacteria Negative /HPF (NEGATIVE) 06/26/19 16:10 Urine Mucus Few /HPF (NEGATIVE) 06/26/19 16:10 Ur Culture Indicated? No/not indicated 06/26/19 16:10 - Plan (1) Acute bronchitis Status: Acute Plan: IV ATBX THERAPY. RESP CONSULT, FEVER CONTROL. GENTLE IV HYDRATION, BC COLLECTED ON ADMISSION. PRN SUPPLEMENTAL O2, UA AND LACTIC ACID ON ADMISSION. RESUMED HOME MEDICATIONS, ENCOURAGED PULMONARY TOILETING (2) Fever Status: Acute (3) Flu-like symptoms Status: Acute (4) Coronary artery disease Status: Acute (5) Essential hypertension Status: Acute
[2019-06-27] MEDS ORDERED: SNACK - Diabetic Appropriate PO SCH (20:00)
[2019-06-27] MEDS: SNACK - Diabetic Appropriate PO SCH (20:07)
[2019-06-28] MEDS: NS 1000 ML 1,000 ML IV SCH ×4 (00:32→16:50)
[2019-06-28] MEDS: ZOSYN VIAL 3.375 GRAMS 3.375 G in NS 100 ML IV + SPIKE MINIBAG* 100 ML IV SCH ×3 (05:53→22:00)
[2019-06-28 07:14] LABS: BASOPHILS % (AUTO) 0.4 % (0.2-1.0); EOSINOPHILS # (AUTO) 0.1 x10^3/uL (0.0-0.2); EOSINOPHILS % (AUTO) 1.3 % (0.9-2.9); HEMATOCRIT 40.9 % (42.0-54.0); HEMOGLOBIN 13.9 g/dL (13.5-18.0); LYMPHOCYTES # (AUTO) 1.1 X10^3/uL (1.3-2.9); LYMPHOCYTES % (AUTO) 17.8 % (21.0-51.0); MEAN CORPUSCULAR HEMOGLOBIN 29.8 pg (27.0-34.0); MEAN CORPUSCULAR VOLUME 87.9 fL (80.0-100.0); MEAN PLATELET VOLUME 9.3 fL (7.4-11.0); MONOCYTES # (AUTO) 0.6 x10^3/uL (0.3-0.8); MONOCYTES % (AUTO) 10.7 % (0.0-13.0); NEUTROPHILS # (AUTO) 4.1 x10^3/uL (2.2-4.8); NEUTROPHILS % (AUTO) 69.8 % (42.0-75.0); PLATELET COUNT 120 X10^3/uL (150.0-450.0); RED BLOOD COUNT 4.66 X10^6/uL (4.7-6.0); RED CELL DISTRIBUTION WIDTH 14.2 % (11.6-16.5); WHITE BLOOD COUNT 5.9 X10^3/uL (3.6-10.0)
[2019-06-28 07:22] LABS: ALANINE AMINOTRANSFERASE 26 Units/L (12-78); ALBUMIN 2.7 g/dL (3.4-5.0); ALKALINE PHOSPHATASE 68 Units/L (46-116); ASPARTATE AMINO TRANSFERASE 26 Units/L (15-37); BLOOD UREA NITROGEN 16 mg/dL (7-18); CALCIUM 8.2 mg/dL (8.5-10.1); CARBON DIOXIDE 30.9 mmol/L (21-32); CHLORIDE 105 mmol/L (98-107); COR CA(FOR HYPOALB) 9.2 mg/dL (8.5-10.1); COR NA(FOR HYPERGLY) 144 mmol/L (136-145); SODIUM 143 mmol/L (136-145); TOTAL PROTEIN 5.8 g/dL (6.4-8.2); eGFR NON BLACK RACES 57 (>60)
[2019-06-28] MEDS: PULMICORT NEB TX 0.5 MG NEB SCH ×2 (08:28→20:40)
[2019-06-28] MEDS ORDERED: PHARMACY COMMENT IV NR (08:30)
[2019-06-28] MEDS ORDERED: TUSSIONEX PENNKINETIC SUSP PO PRN (09:03)
[2019-06-28] MEDS: LIPITOR TAB 40 MG PO SCH (09:11)
[2019-06-28] MEDS: PriLOSEC PO SCH (09:11)
[2019-06-28] MEDS: ROBITUSSIN DM PO SCH (09:11)
[2019-06-28] MEDS: LOPRESSOR TAB 25 MG PO SCH ×2 (09:12→21:07)
[2019-06-28] MEDS: LOVENOX INJ 40 MG SYR SC SCH (09:12)
[2019-06-28] MEDS: HYZAAR 50/12.5 MG PO SCH (09:12)
[2019-06-28] MEDS: AMARYL TAB 4 MG PO SCH ×2 (09:12→21:06)
[2019-06-28] MEDS: ASPIRIN EC 81 MG PO SCH (09:12)
[2019-06-28] MEDS: SOLU-Medrol 125 MG VIAL IVP SCH ×3 (11:38→21:10)
[2019-06-28] MEDS: HumuLIN R SUBCUT PRN ×2 (16:59→21:25)
[2019-06-28] MEDS: SNACK - Diabetic Appropriate PO SCH (20:00)
[2019-06-29] MEDS: NS 1000 ML 1,000 ML IV SCH ×3 (01:12→08:40)
[2019-06-29] MEDS: ZOSYN VIAL 3.375 GRAMS 3.375 G in NS 100 ML IV + SPIKE MINIBAG* 100 ML IV SCH (05:38)
[2019-06-29 06:18] LABS: BASOPHILS % (AUTO) 0.2 % (0.2-1.0); HEMATOCRIT 38.6 % (42.0-54.0); HEMOGLOBIN 13.7 g/dL (13.5-18.0); LYMPHOCYTES # (AUTO) 0.5 X10^3/uL (1.3-2.9); LYMPHOCYTES % (AUTO) 6.4 % (21.0-51.0); MEAN CORPUSCULAR HEMOGLOBIN 30.5 pg (27.0-34.0); MEAN CORPUSCULAR HGB CONC 35.6 g/dL (33.0-35.0); MEAN CORPUSCULAR VOLUME 85.7 fL (80.0-100.0); MEAN PLATELET VOLUME 9.5 fL (7.4-11.0); MONOCYTES # (AUTO) 0.2 x10^3/uL (0.3-0.8); MONOCYTES % (AUTO) 2.9 % (0.0-13.0); NEUTROPHILS # (AUTO) 6.9 x10^3/uL (2.2-4.8); NEUTROPHILS % (AUTO) 90.5 % (42.0-75.0); PLATELET COUNT 147 X10^3/uL (150.0-450.0); RED CELL DISTRIBUTION WIDTH 13.9 % (11.6-16.5); WHITE BLOOD COUNT 7.6 X10^3/uL (3.6-10.0)
[2019-06-29] MEDS: HumuLIN R SUBCUT PRN ×2 (06:18→12:31)
[2019-06-29 06:41] LABS: ALANINE AMINOTRANSFERASE 25 Units/L (12-78); ALBUMIN 2.7 g/dL (3.4-5.0); ALKALINE PHOSPHATASE 63 Units/L (46-116); ASPARTATE AMINO TRANSFERASE 17 Units/L (15-37); BLOOD UREA NITROGEN 19 mg/dL (7-18); CALCIUM 8.1 mg/dL (8.5-10.1); CARBON DIOXIDE 28.2 mmol/L (21-32); CHLORIDE 103 mmol/L (98-107); COR CA(FOR HYPOALB) 9.1 mg/dL (8.5-10.1); COR NA(FOR HYPERGLY) 144 mmol/L (136-145); CREATININE 1.23 mg/dL (0.70-1.30); SODIUM 140 mmol/L (136-145); TOTAL PROTEIN 5.9 g/dL (6.4-8.2); eGFR NON BLACK RACES > 60 (>60)
[2019-06-29 06:49] LABS: PLATELET MORPHOLOGY COMMENT NORMAL (NORMAL)
[2019-06-29] MEDS: PULMICORT NEB TX 0.5 MG NEB SCH (08:30)
[2019-06-29] MEDS: LOVENOX INJ 40 MG SYR SC SCH (08:33)
[2019-06-29] MEDS: ASPIRIN EC 81 MG PO SCH (08:34)
[2019-06-29] MEDS: HYZAAR 50/12.5 MG PO SCH (08:34)
[2019-06-29] MEDS: LIPITOR TAB 40 MG PO SCH (08:34)
[2019-06-29] MEDS: LOPRESSOR TAB 25 MG PO SCH (08:35)
[2019-06-29] MEDS: PriLOSEC PO SCH (08:35)
[2019-06-29] MEDS: AMARYL TAB 4 MG PO SCH (08:35)
--- NOTE | 2019-06-29 10:02 | RAD ---
HISTORY: Shortness of breath, wheezing, pneumonia Study: Two-view chest Comparison: 06/26/2019. Findings: Trachea is midline. Heart size is normal. There is hyperinflation of the lungs with stable increased interstitial markings bilaterally. Findings may represent COPD. No consolidation, CHF, pleural fluid or pneumothorax is seen. Osseous structures are intact. IMPRESSION: Hyperinflation with stable increased interstitial lung markings bilaterally. Findings may represent COPD. An acute process is not identified. Reported By:
[2019-06-29 10:16] VITALS: BP 129/65
[2019-06-29] MEDS ORDERED: LASIX IVP SCH (11:30)
[2019-06-29] MEDS ORDERED: LASIX PO NR (13:00)
== END 2019-06-29 12:34 | disposition home or self-care (01) | DRG 872 ==
LOC: ER 15:24 → MED/SURG 18:05
PROVIDERS: ADMIT Internal Medicine; ATTEND Internal Medicine
DX: A41.9 Sepsis, unspecified organism; I10 Essential (primary) hypertension; E86.0 Dehydration; E11.65 Type 2 diabetes mellitus with hyperglycemia; J20.8 Acute bronchitis due to other specified organisms; R94.4 Abnormal results of kidney function studies; I25.10 Atherosclerotic heart disease of native coronary artery without angina pectoris; R06.02 Shortness of breath; R41.82 Altered mental status, unspecified
CPT/HCPCS: 36415; 70450; 71010; 71020; 71045; 71046; 80053; 81001; 82550; 82553; 83605; 83735; 84100; 84484; 85025; 85610; 85730; 87040; 87070; 87205; 87502; 94640; 94760; 96365; 96367; 96374; 99284; A4222; J1650; J1815; J1956; J2543; J2930; J3370; J3475; J3490; J7030; J7050; J7620; J7626

== ENCOUNTER 2019-07-19 12:19 | Observation (INO) ==
[2019-07-19] MEDS ORDERED: ZOFRAN INJ 4 MG VIAL IVP PRN (12:57)
[2019-07-19] MEDS ORDERED: TUSSIONEX PENNKINETIC SUSP PO PRN (12:57)
[2019-07-19] MEDS ORDERED: NS 1000 ML 1,000 ML ONE (13:20)
[2019-07-19] MEDS ORDERED: PROTONIX INJ 40 MG VIAL ONE (13:20)
--- NOTE | 2019-07-19 13:28 | CT ---
History: Lower abdominal pain and diarrhea Study: CT abdomen and pelvis without contrast. Sagittal and coronal reformations were provided. Dose reduction techniques were utilized. Comparison: February 22, 2019 Findings: The visualized lung bases are grossly clear. There is a tiny hiatal hernia. The liver and spleen and pancreas and adrenal glands and kidneys are unremarkable. There is no renal calculus or hydronephrosis. Bladder is unremarkable. The appendix is surgically absent by history. There is sigmoid diverticulosis without stranding of fat planes. The urinary bladder is unremarkable. The prostate is enlarged measuring over 6 cm AP diameter and at least 5.6 cm transverse width. There is mild elevation of the base of the bladder. There is mild aneurysmal dilatation of the abdominal aorta below the renal arteries. There are degenerative changes in the lumbar spine most prominent at L5-S1. There is no ascites or adenopathy. Impression: Tiny hiatal hernia and small abdominal aortic aneurysm and enlarged prostate unchanged. No acute disease of the abdomen or pelvis is demonstrated. Reported By:
[2019-07-19] MEDS: NS 1000 ML 1,000 ML IV SCH (13:41)
[2019-07-19] MEDS: PROTONIX INJ 40 MG VIAL IVP SCH (13:42)
[2019-07-19] MEDS: PULMICORT NEB TX 0.5 MG NEB SCH ×2 (13:51→20:41)
[2019-07-19] MEDS ORDERED: SALINE 3% 15 ML NEB TX NEB ONE (13:52)
[2019-07-19] MEDS ORDERED: LIPITOR TAB 40 MG PO SCH ×2 (14:00→21:00)
[2019-07-19] MEDS: LEVAQUIN PREMIX IV 500 MG 500 MG/100 ML BAG IV SCH (14:10)
[2019-07-19 14:25] LABS: BASOPHILS % (AUTO) 0.5 % (0.2-1.0); EOSINOPHILS % (AUTO) 0.5 % (0.9-2.9); HEMATOCRIT 41.2 % (42.0-54.0); HEMOGLOBIN 14.4 g/dL (13.5-18.0); LYMPHOCYTES # (AUTO) 0.3 X10^3/uL (1.3-2.9); LYMPHOCYTES % (AUTO) 5.3 % (21.0-51.0); MEAN CORPUSCULAR HEMOGLOBIN 30.8 pg (27.0-34.0); MEAN CORPUSCULAR HGB CONC 34.9 g/dL (33.0-35.0); MEAN CORPUSCULAR VOLUME 88.2 fL (80.0-100.0); MONOCYTES # (AUTO) 0.5 x10^3/uL (0.3-0.8); NEUTROPHILS # (AUTO) 5.3 x10^3/uL (2.2-4.8); NEUTROPHILS % (AUTO) 85.7 % (42.0-75.0); PLATELET COUNT 150 X10^3/uL (150.0-450.0); RED BLOOD COUNT 4.68 X10^6/uL (4.7-6.0); RED CELL DISTRIBUTION WIDTH 14.4 % (11.6-16.5); WHITE BLOOD COUNT 6.2 X10^3/uL (3.6-10.0)
[2019-07-19 14:36] LABS: ALANINE AMINOTRANSFERASE 25 Units/L (12-78); ALBUMIN 3.2 g/dL (3.4-5.0); ALKALINE PHOSPHATASE 82 Units/L (46-116); ASPARTATE AMINO TRANSFERASE 19 Units/L (15-37); BLOOD UREA NITROGEN 15 mg/dL (7-18); CALCIUM 8.3 mg/dL (8.5-10.1); CARBON DIOXIDE 30.6 mmol/L (21-32); CHLORIDE 99 mmol/L (98-107); COR CA(FOR HYPOALB) 8.9 mg/dL (8.5-10.1); COR NA(FOR HYPERGLY) 140 mmol/L (136-145); CREATININE 1.28 mg/dL (0.70-1.30); SODIUM 137 mmol/L (136-145); TOTAL PROTEIN 6.2 g/dL (6.4-8.2); eGFR NON BLACK RACES 58 (>60)
[2019-07-19 15:05] VITALS: BMI 33.7
[2019-07-19 16:13] LABS: BILIRUBIN,URINE NEGATIVE (NEGATIVE); BLOOD/HEMOGLOBIN,URINE NEGATIVE (NEGATIVE); GLUCOSE, URINE NEGATIVE (NEGATIVE); KETONES,URINE NEGATIVE (NEGATIVE); LEUKOCYTE ESTERASE ,URINE NEGATIVE (NEGATIVE); NITRITES,URINE NEGATIVE (NEGATIVE); PROTEIN,URINE 1+ (NEGATIVE); UROBILINOGEN,URINE NORMAL (NORMAL)
[2019-07-19 16:17] LABS: AMORPHOUS SEDIMENT,UR TRACE /HPF (NEGATIVE); APPEARANCE,URINE CLEAR (CLEAR); BACTERIA,URINE NEGATIVE /HPF (NEGATIVE); COLOR,URINE YELLOW (YELLOW); RBC,URINE NONE SEEN /HPF (0-3); SQUAMOUS EPITHELIAL CELL,UR NEGATIVE /HPF (NEGATIVE)
--- NOTE | 2019-07-19 18:02 | DR.H&P ---
H&P - History & Physical for Day of: H&P Date: 07/19/19 - Chief Complaint Chief Complaint: weakness, ccc, loose stool with blood in stool - History of Present Illness History of Present Illness: PT IS 74 WM DIRECT ADMIT FROM DR BUTTS OFFICE AFTER PRESENTING WITH CO CCC, LOOSE STOOL WITH BLOOD IN STOOL. PT STATE HE HAS HX OF "COLITIS" AND CO N/V ONSET YESTERDAY. PT WAS RECENTLY IN [facility] WITH ACUTE BRONCHITIS. PT HAS PMH CAD, HTN, OA, GERD. PT HAD ROCEPHIN IN OFFICE YESTERDAY AND STARTED ON ZITHROMAX PACK. PT ADMITTED FOR TREATMENT OF ACUTE ILLNESS. - Past Medical History Past Medical History: Hypertension, Arthritis - Past Surgical History Surgical History: Angioplasty/Stents, Ortho Surgery, Other - Family History Family Medical History: Diabetes Mellitus, [place], Coronary Artery Disease, Heart Failure, Hypertension - Social History Does patient currently use any type of tobacco product: No Have you used tobacco products in the last 12 months: No Type of Tobacco Use: None Does any household member use tobacco: No Alcohol Use: None Drug Use: None - Medications Home Medications: No Known Drug Allergies Allergy (Verified 02/19/19 15:32) CONTINUE taking the following medications azithromycin See Rx Instructions .ROUTE .COMPLEX 07/19/19 [History] - Physical Exam Vital Signs: Temperature 97.9 F Pulse Rate [Left Radial] 83 Pulse Rate 71 Respiratory Rate 18 Blood Pressure [Right Arm] 108/59 Blood Pressure 134/54 O2 Sat by Pulse Oximetry 95 - Allergies Allergies/Adverse Reactions: Allergies Allergy/AdvReac Type Severity Reaction Status Date / Time No Known Drug Allergies Allergy Verified 02/19/19 15:32
[2019-07-19] MEDS ORDERED: SOLU-Medrol 40 MG VIAL ONE (18:04)
[2019-07-19] MEDS: SOLU-Medrol 40 MG VIAL IVP SCH ×2 (19:00→22:05)
[2019-07-19] MEDS ORDERED: SNACK - Diabetic Appropriate PO SCH (20:00)
[2019-07-19] MEDS: PROVENTIL NEB TX 0.083% 2.5MG/ 3ML NEB PRN (20:41)
[2019-07-19] MEDS: LOPRESSOR TAB 25 MG PO SCH (22:01)
[2019-07-19] MEDS ORDERED: COLACE CAP 100 MG PO PRN (23:37)
[2019-07-19] MEDS ORDERED: MILK OF MAGNESIA PO PRN (23:37)
[2019-07-20] MEDS: HumuLIN R SUBCUT PRN ×2 (00:11→06:22)
[2019-07-20] MEDS: NS 1000 ML 1,000 ML IV SCH (02:43)
[2019-07-20 05:17] LABS: BASOPHILS % (AUTO) 0.2 % (0.2-1.0); HEMATOCRIT 39.7 % (42.0-54.0); HEMOGLOBIN 13.9 g/dL (13.5-18.0); LYMPHOCYTES # (AUTO) 0.3 X10^3/uL (1.3-2.9); LYMPHOCYTES % (AUTO) 6.9 % (21.0-51.0); MEAN CORPUSCULAR HEMOGLOBIN 30.7 pg (27.0-34.0); MEAN CORPUSCULAR VOLUME 87.7 fL (80.0-100.0); MEAN PLATELET VOLUME 9.5 fL (7.4-11.0); MONOCYTES # (AUTO) 0.1 x10^3/uL (0.3-0.8); MONOCYTES % (AUTO) 1.9 % (0.0-13.0); NEUTROPHILS # (AUTO) 4.2 x10^3/uL (2.2-4.8); PLATELET COUNT 148 X10^3/uL (150.0-450.0); RED BLOOD COUNT 4.53 X10^6/uL (4.7-6.0); RED CELL DISTRIBUTION WIDTH 14.4 % (11.6-16.5); WHITE BLOOD COUNT 4.6 X10^3/uL (3.6-10.0)
[2019-07-20 05:29] LABS: ALANINE AMINOTRANSFERASE 25 Units/L (12-78); ALBUMIN 2.9 g/dL (3.4-5.0); ALKALINE PHOSPHATASE 79 Units/L (46-116); ASPARTATE AMINO TRANSFERASE 14 Units/L (15-37); BLOOD UREA NITROGEN 16 mg/dL (7-18); CALCIUM 8.1 mg/dL (8.5-10.1); CARBON DIOXIDE 29.9 mmol/L (21-32); CHLORIDE 101 mmol/L (98-107); COR NA(FOR HYPERGLY) 142 mmol/L (136-145); CREATININE 1.25 mg/dL (0.70-1.30); SODIUM 138 mmol/L (136-145); eGFR NON BLACK RACES 60 (>60)
[2019-07-20 05:36] LABS: PLATELET MORPHOLOGY COMMENT NORMAL (NORMAL)
[2019-07-20] MEDS ORDERED: MICRO K EXTEN CAP 10 MEQ PO PRN (05:54)
[2019-07-20] MEDS ORDERED: POTASSIUM CHLORIDE LIQ 20 MEQ UDC PO PRN (05:54)
[2019-07-20] MEDS ORDERED: K-RIDER 10 MEQ/NS 100 ML 10 MEQ/100 ML BAG IV PRN (05:54)
[2019-07-20] MEDS ORDERED: POTASSIUM CHL 60 MEQ/NS 0.45% 500 ML IV PRN (05:54)
[2019-07-20] MEDS ORDERED: POTASSIUM CHL 40 MEQ/NS 0.45% 500 ML IV PRN (05:54)
[2019-07-20] MEDS ORDERED: K-DUR TAB 20 MEQ PO PRN (05:54)
[2019-07-20] MEDS ORDERED: KLOR-CON PO PRN (05:54)
[2019-07-20] MEDS: SOLU-Medrol 40 MG VIAL IVP SCH (06:20)
[2019-07-20] MEDS: PULMICORT NEB TX 0.5 MG NEB SCH (08:46)
[2019-07-20] MEDS: PROVENTIL NEB TX 0.083% 2.5MG/ 3ML NEB PRN (08:46)
[2019-07-20] MEDS: LOPRESSOR TAB 25 MG PO SCH (09:44)
[2019-07-20] MEDS: LEVAQUIN PREMIX IV 500 MG 500 MG/100 ML BAG IV SCH (09:44)
[2019-07-20] MEDS: PROTONIX INJ 40 MG VIAL IVP SCH (09:44)
--- NOTE | 2019-07-20 09:48 | RAD ---
History: Cough for 1 month Study: Portable AP chest Comparison: July 19 2019 Findings: The lungs remain clear and the heart and mediastinum are unremarkable. There is no edema or effusion or congestion. Impression: No evidence for acute cardiopulmonary disease Reported By:
[2019-07-20] MEDS ORDERED: PHARMACY CONSULT - DOSE _____ XX SCH (10:00)
[2019-07-20 11:08] VITALS: BP 133/75
== END 2019-07-20 11:00 | disposition home or self-care (01) ==
LOC: INTOOBSV 12:22 → MED/SURG 12:22
PROVIDERS: ADMIT Internal Medicine; ATTEND Internal Medicine
DX: R53.1 Weakness; K44.9 Diaphragmatic hernia without obstruction or gangrene; I10 Essential (primary) hypertension; E11.65 Type 2 diabetes mellitus with hyperglycemia; K52.89 Other specified noninfective gastroenteritis and colitis; I25.10 Atherosclerotic heart disease of native coronary artery without angina pectoris; R19.7 Diarrhea, unspecified; K21.9 Gastro-esophageal reflux disease without esophagitis; N40.0 Benign prostatic hyperplasia without lower urinary tract symptoms; J20.8 Acute bronchitis due to other specified organisms; I71.4 Abdominal aortic aneurysm, without rupture; R11.2 Nausea with vomiting, unspecified
CPT/HCPCS: 36415; 71010; 71045; 74176; 80053; 81001; 83735; 85025; 87070; 87205; 94640; 94669; 94760; 96367; 96372; 96374; A4222; C9113; G0378; J1815; J1956; J2920; J7030; J7613; J7626

== ENCOUNTER 2024-02-15 17:12 | Inpatient (IN) ==
--- NOTE | 2024-02-15 18:05 | DR.H&P ---
H&P History & Physical for Day of: H&P Date: 02/15/24 Chief Complaint Chief Complaint: SOB, CCC Allergies Allergies Allergy/AdvReac Type Severity Reaction Status Date / Time No Known Drug Allergies Allergy Verified 07/19/21 12:15 History of Present Illness History of Present Illness: PT IS 78 WM, DIRECT ADMIT FROM DR GOLDEN'S OFFICE WITH SOB, CHEST CONGESTION, COUGHING AND WEAKNESS FOR OVER A WEEK. PT WAS SEEN IN ER IN [place] X1 AND [place] IN [place] X [place]. PT HAS TAKEN PO AUGMENTIN AND DOXYCYCLINE WITHOUT IMPROVEMENT. PT'S HEART RATE HAS BEEN LOWER 40S SINCE THE ONSET OF ILLNES. PT REPORTS HE HAD A WOODY AT [place] WITH NORMAL LVEF. PT CO HX OF SYCOPE WELL. PT ADMITTED FOR TREATMENT AND EVALUATIN OF ACUTE ILLNESS. Past Medical History Past Medical History: Anxiety, Coronary Artery Disease, Dementia, Diabetes, Dyslipidemia, GERD, Hypertension and CO Past Surgical History Surgical History: Angioplasty/Stents, Appendectomy and Ortho Surgery Family History Family Medical History: Hypertension Medications Home Medications: Home Medications Medication Instructions Recorded Confirmed Type aspirin 81 mg tablet,delayed 81 mg PO DAILY 10/02/15 02/04/24 History release (Aspir-Low) atorvastatin 80 mg tablet (Lipitor) 80 mg PO HS 02/22/19 02/04/24 History omeprazole magnesium 20 mg 20 mg PO DAILY 06/26/19 02/04/24 History tablet,delayed release (Prilosec OTC) amlodipine 10 mg tablet 10 mg PO QDAY 08/24/22 02/04/24 History donepezil 10 mg tablet 10 mg PO BID 08/24/22 02/04/24 History amlodipine 10 mg tablet 10 mg PO QDAY 02/04/24 02/04/24 History clopidogrel 75 mg tablet 75 mg PO QDAY 02/04/24 02/04/24 History doxazosin 4 mg tablet 4 mg PO QDAY 02/04/24 02/04/24 History empagliflozin 10 mg tablet 10 mg PO QDAY 02/04/24 02/04/24 History (Jardiance) escitalopram oxalate 10 mg tablet 10 mg PO QDAY 02/04/24 02/04/24 History gabapentin 100 mg capsule 100 mg PO BID 02/04/24 02/04/24 History lamotrigine 25 mg tablet 50 mg PO BID 02/04/24 02/04/24 History metformin 500 mg tablet,extended 500 mg PO BID 02/04/24 02/04/24 History release 24 hr valsartan 160 mg tablet 160 mg PO QDAY 02/04/24 02/04/24 History Review of Systems Constitutional: Weakness and Malaise Eyes: No Symptoms Reported ENT: Nose Discharge and Nose Congestion Respiratory: Shortness of Breath and SOB with Excertion Cardiovascular: Palpitations, Edema and Light Headedness Gastrointestinal: Nausea Genitourinary: No Symptoms Reported Musculoskeletal: Back Pain Skin: No Symptoms Reported Neurological: Other (DIZZINESS ) Oriented: Normal Eyes: Normal Nose: Discharge Throat: Tonsillar Hypertrophy and Dry Respiratory: Wheezes Throughout, RLL Diminished and LLL Diminished Cardiovascular: Bradycardia Palpation: Normal Tenderness: Normal Skin: Decreased Turgur Musculoskeletal: Motor Deficit (MILD DIFFUSE MUSCLE WEAKNESS) Psychiatric: Anxiety Affect: Anxious Speech Pattern: Clear and Appropriate Assessment/Plan (1) Pneumonia: Narrative Support Text: ADMIT, ICU CARDIAC MONITORING IV HYDRATION, CE AND EKG STRICT I&OS IV ATBX THERAPY, ABG ON ADMISSION BNP ON ADMISSION, VERIFY HOME MEDICATION SUPPLEMENTAL O2 AND RESP THERAPY Status: Acute (2) Bradycardia: Status: Acute (3) Dizziness: Status: Acute (4) Coronary artery disease: Status: Acute (5) Essential hypertension: Status: Acute
--- NOTE | 2024-02-15 18:08 | EKG ---
Test Reason : BRADYCARDIA Blood Pressure : */* mmHG Vent. Rate : 78 BPM Atrial Rate : 78 BPM P-R Int : * ms QRS Dur : 74 ms QT Int : 410 ms P-R-T Axes : * 57 28 degrees QTc Int : 467 ms Normal sinus rhythm with pvcs in bigeminy Septal infarct (cited on or before 04-FEB-2024) Abnormal ECG When compared with ECG of 04-FEB-2024 12:27, Nonspecific T wave abnormality now evident in Inferior leads Confirmed by Edin Noel MD ([id number]) on 02/16/2024 7:42:31 AM Referred By: Confirmed By: Edin Noel MD
[2024-02-15] MEDS: PULMICORT NEB TX 0.5 MG NEB SCH (18:16)
[2024-02-15 18:19] LABS: ABG ALLEN TEST POS; ABG BASE EXCESS 1.3 mmol/L (-2.0-2.0); ABG HCO3 25.9 mmol/L (22-26)
[2024-02-15] MEDS: XOPENEX 1.25 MG/3 ML NEBULE NEB SCH (18:24)
[2024-02-15] MEDS: PLAVIX PO SCH (18:25)
[2024-02-15] MEDS: NS 1,000 ML IV 1,000 ML IV SCH (18:25)
[2024-02-15 18:39] LABS: BASOPHILS # (AUTO) 0.1 X10^3/uL (0.0-0.1); BASOPHILS % (AUTO) 0.9 % (0.2-1.0); EOSINOPHILS # (AUTO) 0.1 x10^3/uL (0.0-0.2); EOSINOPHILS % (AUTO) 1.3 % (0.9-2.9); HEMATOCRIT 36.4 % (42.0-54.0); HEMOGLOBIN 12.1 g/dL (13.5-18.0); LYMPHOCYTES # (AUTO) 0.9 X10^3/uL (1.3-2.9); LYMPHOCYTES % (AUTO) 12.1 % (21.0-51.0); MEAN CORPUSCULAR HEMOGLOBIN 30.1 pg (27.0-34.0); MEAN CORPUSCULAR HGB CONC 33.2 g/dL (33.0-35.0); MEAN CORPUSCULAR VOLUME 90.9 fL (80.0-100.0); MEAN PLATELET VOLUME 9.9 fL (7.4-11.0); MONOCYTES # (AUTO) 0.6 x10^3/uL (0.3-0.8); MONOCYTES % (AUTO) 7.6 % (0.0-13.0); NEUTROPHILS # (AUTO) 5.9 x10^3/uL (2.2-4.8); NEUTROPHILS % (AUTO) 78.1 % (42.0-75.0); PLATELET COUNT 153 X10^3/uL (150.0-450.0); RED BLOOD COUNT 4.01 X10^6/uL (4.7-6.0); WHITE BLOOD COUNT 7.6 X10^3/uL (3.6-10.0)
[2024-02-15 18:50] LABS: ALBUMIN 2.6 g/dL (3.4-5.0); CARBON DIOXIDE 29.2 mmol/L (21-32); COR CA(FOR HYPOALB) 9.1 mg/dL (8.5-10.1); CREATININE 1.45 mg/dL (0.70-1.30); MAGNESIUM 2.1 mg/dL (2.0-2.9); POTASSIUM 4.3 mmol/L (3.5-5.1); TOTAL PROTEIN 6.4 g/dL (6.4-8.2)
[2024-02-15 20:21] VITALS: BMI 33.9
[2024-02-15] MEDS: ROBITUSSIN DM PO SCH (20:47)
[2024-02-15] MEDS: SOLU-Medrol 40 MG VIAL IVP SCH (20:47)
[2024-02-16 06:04] LABS: BASOPHILS % (AUTO) 0.2 % (0.2-1.0); EOSINOPHILS % (AUTO) 0.1 % (0.9-2.9); HEMATOCRIT 35.8 % (42.0-54.0); HEMOGLOBIN 11.8 g/dL (13.5-18.0); LYMPHOCYTES # (AUTO) 0.4 X10^3/uL (1.3-2.9); LYMPHOCYTES % (AUTO) 6.3 % (21.0-51.0); MEAN CORPUSCULAR HEMOGLOBIN 30.2 pg (27.0-34.0); MEAN CORPUSCULAR HGB CONC 33.1 g/dL (33.0-35.0); MEAN CORPUSCULAR VOLUME 91.5 fL (80.0-100.0); MEAN PLATELET VOLUME 10.7 fL (7.4-11.0); MONOCYTES # (AUTO) 0.1 x10^3/uL (0.3-0.8); MONOCYTES % (AUTO) 1.1 % (0.0-13.0); NEUTROPHILS # (AUTO) 5.6 x10^3/uL (2.2-4.8); NEUTROPHILS % (AUTO) 92.3 % (42.0-75.0); PLATELET COUNT 151 X10^3/uL (150.0-450.0); RED BLOOD COUNT 3.91 X10^6/uL (4.7-6.0); RED CELL DISTRIBUTION WIDTH 14.9 % (11.6-16.5)
[2024-02-16 06:18] LABS: ALANINE AMINOTRANSFERASE 36 Units/L (12-78); ALBUMIN 2.5 g/dL (3.4-5.0); ALKALINE PHOSPHATASE 85 Units/L (46-116); ASPARTATE AMINO TRANSFERASE 15 Units/L (15-37); BLOOD UREA NITROGEN 17 mg/dL (7-18); CARBON DIOXIDE 25.1 mmol/L (21-32); CHLORIDE 107 mmol/L (98-107); COR CA(FOR HYPOALB) 9.2 mg/dL (8.5-10.1); COR NA(FOR HYPERGLY) 142 mmol/L (136-145); CREATININE 1.26 mg/dL (0.70-1.30); GLUCOSE 195 mg/dL (65-99); POTASSIUM 4.4 mmol/L (3.5-5.1); SODIUM 140 mmol/L (136-145); TOTAL PROTEIN 6.2 g/dL (6.4-8.2); eGFR NON BLACK RACES 59 (>60)
[2024-02-16 06:29] LABS: BAND NEUTROPHILS % 1 % (0-10); GIANT PLATELET RARE; PLATELET MORPHOLOGY COMMENT ABNORMAL (NORMAL)
[2024-02-16] MEDS: LOVENOX INJ 40 MG SYR SC SCH (09:42)
[2024-02-16] MEDS: PROTONIX INJ 40 MG VIAL IVP SCH (09:42)
[2024-02-16] MEDS: ZITHROMAX INJ 500 MG VIAL 500 MG in NS 250 ML IV 250 ML IV SCH (09:42)
[2024-02-16] MEDS: DIOVAN TAB 160 MG PO SCH (09:43)
[2024-02-16] MEDS: LAMICTAL TAB 100 MG PO SCH (09:43)
[2024-02-16] MEDS: MICRO K EXTEN CAP 10 MEQ PO SCH (09:44)
[2024-02-16] MEDS: CARDURA PO SCH (09:55)
[2024-02-16] MEDS: NovoLIN R (or HumuLIN R) SC PRN (12:09)
[2024-02-16] MEDS: LASIX IVP SCH (13:37)
[2024-02-16] MEDS: LIPITOR TAB 80 MG PO SCH (20:44)
[2024-02-17 04:50] VITALS: TEMP 98.4
[2024-02-17 05:27] LABS: BASOPHILS % (AUTO) 0.2 % (0.2-1.0); HEMATOCRIT 33.7 % (42.0-54.0); HEMOGLOBIN 11.2 g/dL (13.5-18.0); LYMPHOCYTES # (AUTO) 0.3 X10^3/uL (1.3-2.9); LYMPHOCYTES % (AUTO) 3.5 % (21.0-51.0); MEAN CORPUSCULAR HEMOGLOBIN 30.1 pg (27.0-34.0); MEAN CORPUSCULAR HGB CONC 33.1 g/dL (33.0-35.0); MEAN CORPUSCULAR VOLUME 90.9 fL (80.0-100.0); MONOCYTES # (AUTO) 0.2 x10^3/uL (0.3-0.8); MONOCYTES % (AUTO) 2.3 % (0.0-13.0); PLATELET COUNT 147 X10^3/uL (150.0-450.0); RED BLOOD COUNT 3.71 X10^6/uL (4.7-6.0); RED CELL DISTRIBUTION WIDTH 14.9 % (11.6-16.5); WHITE BLOOD COUNT 9.6 X10^3/uL (3.6-10.0)
[2024-02-17 05:34] LABS: ALANINE AMINOTRANSFERASE 29 Units/L (12-78); ALBUMIN 2.5 g/dL (3.4-5.0); ALKALINE PHOSPHATASE 72 Units/L (46-116); ASPARTATE AMINO TRANSFERASE 9 Units/L (15-37); BLOOD UREA NITROGEN 24 mg/dL (7-18); CHLORIDE 107 mmol/L (98-107); COR CA(FOR HYPOALB) 9.2 mg/dL (8.5-10.1); COR NA(FOR HYPERGLY) 143 mmol/L (136-145); CREATININE 1.31 mg/dL (0.70-1.30); GLUCOSE 195 mg/dL (65-99); POTASSIUM 4.2 mmol/L (3.5-5.1); SODIUM 141 mmol/L (136-145); TOTAL PROTEIN 5.9 g/dL (6.4-8.2); eGFR NON BLACK RACES 56 (>60)
[2024-02-17 06:08] LABS: BAND NEUTROPHILS % 4 % (0-10); GIANT PLATELET RARE; PLATELET MORPHOLOGY COMMENT ABNORMAL (NORMAL)
[2024-02-17] MEDS: LASIX IVP SCH (08:44)
--- NOTE | 2024-02-17 12:27 | RAD ---
EXAM: CHEST, 1 VIEW HISTORY: PNEUMONIA, CHF; COMPARISON: No relevant prior studies were available for comparison at the time of interpretation. [facility] 2023 TECHNIQUE: CHEST, 1 VIEW FINDINGS: Chest: Lines and tubes: Cardiac leads overlie the chest. Mediastinum: Borderline cardiomegaly. Pulmonary vessels: Pulmonary vasculature is prominent. Lung ortiz: No suspicious airspace opacity. Pleura: No effusion. No pneumothorax. Bones and soft tissues: No acute osseous or soft tissue abnormality. IMPRESSION: 1. No acute cardiopulmonary abnormality THIS IS AN ELECTRONICALLY VERIFIED FINAL REPORT 02/17/2024 12:24 PM - Electronically signed by Ezio Schaefer MD
[2024-02-17 12:29] VITALS: BP 118/56; PULSE 78; O2SAT 98
[2024-02-17 13:07] VITALS: RESP 34
--- NOTE | 2024-02-17 17:19 | PCM.DCPLAN ---
DISCHARGE SUMMARY Admission Date Date of Admission: 02/15/24 Discharge Date Discharge Date: 02/17/24 Admission Diagnoses (1) Pneumonia: Status: Acute (2) Bradycardia: Status: Acute (3) Dizziness: Status: Acute (4) Coronary artery disease: Status: Acute (5) Essential hypertension: Status: Acute Discharge Diagnoses Discharge Diagnosis: RESOLVED PNEUMONIA, RESOLVED BRADYCARDIA, RESOLVED DIZZINESS- SAME ADMISSION Discharge Medications Discharge Medications: Home Medication List cinnamon bark 500 mg capsule (Cinnamon) 1,000 mg PO DAILY 02/15/24 [History] cyanocobalamin (vitamin B-12) 1,000 mcg tablet (Vitamin B-12) 1,000 mcg PO QDAY 02/15/24 [History] azithromycin 250 mg tablet (Zithromax) 250 mg PO QDAY 5 days #5 tabs 02/17/24 [Rx] Prescriptions: azithromycin [Zithromax] [facility] Course Vital Signs: Vital Signs Pulse Rate 78 Pulse Rate 78 Pulse Rate 79 Pulse Rate 82 Pulse Rate 78 Pulse Rate 83 Pulse Rate 82 Pulse Rate 80 Pulse Rate 87 Pulse Rate 88 Pulse Rate 92 Pulse Rate 91 Pulse Rate 90 Pulse Rate 87 Pulse Rate 86 Pulse Rate 85 Respiratory Rate 34 Respiratory Rate 31 Respiratory Rate 18 Respiratory Rate 22 Respiratory Rate 24 Respiratory Rate 25 Respiratory Rate 26 Respiratory Rate 19 Respiratory Rate 19 Respiratory Rate 20 Respiratory Rate 19 Respiratory Rate 16 Respiratory Rate 20 Respiratory Rate 34 Respiratory Rate 29 Blood Pressure 118/56 O2 Sat by Pulse Oximetry 98 O2 Sat by Pulse Oximetry 98 O2 Sat by Pulse Oximetry 94 O2 Sat by Pulse Oximetry 97 O2 Sat by Pulse Oximetry 96 O2 Sat by Pulse Oximetry 95 O2 Sat by Pulse Oximetry 95 O2 Sat by Pulse Oximetry 97 O2 Sat by Pulse Oximetry 97 O2 Sat by Pulse Oximetry 99 O2 Sat by Pulse Oximetry 97 O2 Sat by Pulse Oximetry 99 O2 Sat by Pulse Oximetry 98 O2 Sat by Pulse Oximetry 100 O2 Sat by Pulse Oximetry 99 O2 Sat by Pulse Oximetry 99 Latest Lab Results: Laboratory Last Values WBC 9.6 X10^3/uL (3.6-10.0) 02/17/24 04:25 RBC 3.71 X10^6/uL (4.7-6.0) L 02/17/24 04:25 Hgb 11.2 g/dL (13.5-18.0) L 02/17/24 04:25 Hct 33.7 % (42.0-54.0) L 02/17/24 04:25 MCV 90.9 fL (80.0-100.0) 02/17/24 04:25 MCH 30.1 pg (27.0-34.0) 02/17/24 04:25 MCHC 33.1 g/dL (33.0-35.0) 02/17/24 04:25 RDW 14.9 % (11.6-16.5) 02/17/24 04:25 Plt Count 147 X10^3/uL (150.0-450.0) L 02/17/24 04:25 Plt Count Comment Decreased (ADEQUATE) 02/17/24 04:25 MPV 11.0 fL (7.4-11.0) 02/17/24 04:25 Neut % (Auto) 94.0 % (42.0-75.0) H 02/17/24 04:25 Lymph % (Auto) 3.5 % (21.0-51.0) L 02/17/24 04:25 [facility] % (Auto) 2.3 % (0.0-13.0) 02/17/24 04:25 Eos % (Auto) 0.0 % (0.9-2.9) L 02/17/24 04:25 Baso % (Auto) 0.2 % (0.2-1.0) 02/17/24 04:25 Neut # (Auto) 9.0 x10^3/uL (2.2-4.8) H 02/17/24 04:25 Lymph # (Auto) 0.3 X10^3/uL (1.3-2.9) L 02/17/24 04:25 [facility] # (Auto) 0.2 x10^3/uL (0.3-0.8) L 02/17/24 04:25 Eos # (Auto) 0.0 x10^3/uL (0.0-0.2) 02/17/24 04:25 Baso # (Auto) 0.0 X10^3/uL (0.0-0.1) 02/17/24 04:25 Absolute Nucleated RBC 0.1 /100WBC 02/17/24 04:25 Total Counted 100 02/17/24 04:25 Neutrophils % (Manual) 90 % (39-76) H 02/17/24 04:25 Band Neutrophils % 4 % (0-10) 02/17/24 04:25 Lymphocytes % (Manual) 4 % (13-43) L 02/17/24 04:25 Monocytes % (Manual) 2 % (4-9) L 02/17/24 04:25 Giant Platelets Rare 02/17/24 04:25 Plt Morphology Comment Abnormal (NORMAL) 02/17/24 04:25 RBC Morphology Normal (NORMAL) 02/17/24 04:25 Sample Site Rr 02/15/24 18:15 ABG pH 7.420 (7.35-7.45) 02/15/24 18:15 ABG pCO2 40.0 mmHg (35.0-45.0) 02/15/24 18:15 ABG pO2 72.0 mmHg (80.0-100.0) L 02/15/24 18:15 ABG HCO3 25.9 mmol/L (22-26) 02/15/24 18:15 ABG O2 Saturation 95.0 % (90-100) 02/15/24 18:15 ABG Base Excess 1.3 mmol/L (-2.0-2.0) 02/15/24 18:15 Patrick Test Pos 02/15/24 18:15 A-a Gradient 28.0 mmHg 02/15/24 18:15 FiO2 21.0 02/15/24 18:15 Blood Gas Comments Pt radha well cdn 02/15/24 18:15 Sodium 141 mmol/L (136-145) 02/17/24 04:25 Corrected Sodium 143 mmol/L (136-145) 02/17/24 04:25 Potassium 4.2 mmol/L (3.5-5.1) 02/17/24 04:25 Chloride 107 mmol/L (98-107) 02/17/24 04:25 Carbon Dioxide 26.0 mmol/L (21-32) 02/17/24 04:25 BUN 24 mg/dL (7-18) H 02/17/24 04:25 Creatinine 1.31 mg/dL (0.70-1.30) H 02/17/24 04:25 Est GFR (MDRD) Af Amer > 60 (>60) 02/17/24 04:25 Est GFR (MDRD) Non-Af 56 (>60) L 02/17/24 04:25 Glucose 195 mg/dL (65-99) H 02/17/24 04:25 POC Glucose (mg/dL) 251 mg/dL (65-99) H 02/17/24 12:14 Calcium 8.0 mg/dL (8.5-10.1) L 02/17/24 04:25 Corrected Calcium 9.2 mg/dL (8.5-10.1) 02/17/24 04:25 Magnesium 2.1 mg/dL (2.0-2.9) 02/15/24 18:20 Total Bilirubin 0.50 mg/dL (0.2-1.0) 02/17/24 04:25 AST 9 Units/L (15-37) L 02/17/24 04:25 ALT 29 Units/L (12-78) 02/17/24 04:25 Alkaline Phosphatase 72 Units/L (46-116) 02/17/24 04:25 Creatine Kinase 52 Units/L (39-308) 02/15/24 18:20 Troponin I High Sens 14.0 ng/L (4.0-60.0) 02/15/24 18:20 B-Natriuretic Peptide 553 pg/mL (0-79) H 02/15/24 18:20 Total Protein 5.9 g/dL (6.4-8.2) L 02/17/24 04:25 Albumin 2.5 g/dL (3.4-5.0) L 02/17/24 04:25 Globulin 3.4 g/dL (2.5-4.5) 02/17/24 04:25 Albumin/Globulin Ratio 0.7 Ratio (1.1-2.1) L 02/17/24 04:25 Resp Viral Panel (PCR) See scanned report 02/15/24 18:15 Hospital Course: PT IS 78 WM, DIRECT ADMIT YESTERDAY FROM DR GOLDEN'S OFFICE WITH SOB, CHEST CONGESTION, COUGHING AND WEAKNESS FOR OVER A WEEK, WELL SYMPTOMATIC BRADYCARDIA. PT HAD PREVIOUSLY BEEN SEEN IN [facility] AND [facility] ER X2 FOR THIS ACUTE ILLNESS. HE HAD A CHEST XRAY ON 02/04/24 AT [facility] THAT SHOWED "BIBASILAR OPACITIES WHICH MAY BE DUE TO EDEMA OR PNEUMONIA. CONTINUED FOLLOW UP RECOMMENDED." HE HAS FAILED ON OUTPATIENT PO ABX. UPON ADMISSION, PT WAS STARTED ON IV ABX, IV STEROIDS. ADMISSION LABS: WBC 6.0, HGB 12.1, BUN 16/CREATININE 1.45, BNP 553. ABG: PH 7.420, PC02 40, P02 72, HC03 25.9. 02SAT 95, FIO2 21. REPEAT LABS YESTERDAY MORNING SHOWED WBC 6.0, HGB 11.8, BUN 17/CREATININE 1.26. HIS PULSE HAS BEEN WNL SINCE ADMISSION UNTIL HE HAD ONE EPISODE YESTERDAY MORNING WITH OF 40. PATIENT WAS ASYMPTOMATIC AT THE TIME. EKG SHOWED "Normal sinus rhythm with pvcs in bigeminy, Septal infarct (cited on or before 04-FEB-2024) Abnormal ECG When compared with ECG of 04-FEB-2024 12:27, Nonspecific T wave abnormality now evident in Inferior leads." WE OBTAINED A REPEAT CHEST XRAY THIS MORNING THAT SHOWED NO ACUTE CARDIOPULMONARY ABNORMALITY. MORNING LABS: WBC 9.6, HGB 11.2, BUN 24/CREATININE 1.31. PATIENT STATES THAT HE IS FEELING MUCH IMPROVED AND DENIES CHEST PAIN, DIZZINESS, SO WE WILL ALLOW HIM TO DISCHARGE HOME ON PO ABX. HE WILL NEED TO FOLLOW UP WITH PCP AND HAS APPOINTMENT SCHEDULED FOR 02/25/24 AT 10:45AM. HE WILL ALSO NEED TO SEE A PROVIDER NETWORK MANAGER AND EP SERVICE COORDINATOR AND REFERRALS HAVE BEEN PLACED. PLEASE SEE DISCHARGE PLAN FOR LIST OF DISCHARGE MEDICATIONS AND MODIFICATIONS THAT WE MADE, ELECTRONIC MEDICAL RECORD FOR DIAGNOSTIC TESTS AND LABS. THE PATIENT WAS INSTRUCTED TO RETURN TO THE ER IF CONDITION CHANGED OR WORSENED UNEXPECTEDLY.
== END 2024-02-17 15:15 | disposition home or self-care (01) | DRG 195 ==
LOC: ICU 17:26
PROVIDERS: ADMIT Internal Medicine; ATTEND Internal Medicine
DX: E11.65 Type 2 diabetes mellitus with hyperglycemia; I10 Essential (primary) hypertension; E78.5 Hyperlipidemia, unspecified; J18.8 Other pneumonia, unspecified organism; K21.9 Gastro-esophageal reflux disease without esophagitis; I25.2 Old myocardial infarction; I25.10 Atherosclerotic heart disease of native coronary artery without angina pectoris; R53.1 Weakness; R00.1 Bradycardia, unspecified; R06.02 Shortness of breath; R42 Dizziness and giddiness; R55 Syncope and collapse; R94.31 Abnormal electrocardiogram [ECG] [EKG]